=== PATIENT | female | born 1985 | race Caucasian/White ===

== ENCOUNTER 2025-09-25 08:34 | Emergency (ER) | payer BC, SELFPAY ==
[2025-09-25 08:47] VITALS: BP 111/68; PULSE 65; RESP 16; TEMP 36.6; O2SAT 100
--- NOTE | 2025-09-25 08:51 | ED.URI ---
HPI - URI/Sore Throat General Chief Complaint: Upper Respiratory Infection Stated Complaint: Body Aches/Dizziness Time Seen by Provider: 09/25/25 08:38 Source: patient Mode of arrival: ambulatory Limitations: no limitations History of Present Illness HPI Narrative: Katelyn is a 40-year-old female patient presenting to the clinic today with complaints of runny nose, cough, postnasal drip, dizziness, and body aches x1 week. She denies any known fevers or chills. Has been taking [id number]-[id number] allergy and cold medicines for her symptoms. Denies any chest pain or shortness of breath. Related Data Home Medications ?Medication ?Instructions ?Recorded ?Confirmed ?Last Taken ?Type alprazolam 0.25 mg tablet (Xanax) 0.25 mg PO QHS PRN 08/07/21 08/07/21 Unknown History sertraline 100 mg tablet (Zoloft) 100 mg PO DAILY 08/07/21 08/07/21 Unknown History bupropion HCl 450 mg 24 hr tablet, mg PO 09/25/25 Unknown History extended release lamotrigine 200 mg tablet mg 09/25/25 Unknown History topiramate 50 mg tablet mg 09/25/25 Unknown History Allergies Allergy/AdvReac Type Severity Reaction Status Date / Time No Known Allergies Allergy Verified 08/07/21 15:54 Review of Systems Review of Systems: Pertinent positives per HPI. Patient denies any fever, chills, rash, headache, visual changes, shortness of breath, chest pain, palpitations, nausea, vomiting, diarrhea, constipation, abdominal pain, or any urinary issues. [facility] Family History Family History Grandparent Carcinoma of colon Family history of lung cancer Family history of malignant neoplasm of breast Mother Family history of malignant neoplasm of breast in first degree relative Social History Social History (Updated 08/07/21 @ 15:56 by Yani Taylor MA) Smoking status: Light tobacco smoker Alcohol intake: current Substance use: never Comments At the time of my signature, I reviewed and agree with the nursing past medical, surgical, social, and family history. There is no relevant family history pertinent to the patient complaint. Exam Narrative: General: Well-developed, well nourished, in no apparent distress Head: Normocephalic, atraumatic Eyes: Pupils equally round and reactive to light bilaterally, EOM intact, sclera and conjunctive clear, no discharge, lids normal Ears: TMs intact and clear, ear canals clear, no drainage, grossly hearing normal. Nose: Nares patent, no discharge, mild inflammation, no sinus tenderness. Mouth: Oral pharynx red without lesions or masses, good dentition, MMM. Postnasal drip Neck: Supple, trachea midline, no enlargement of anterior or posterior cervical nodes, no thyroid masses or goiter palpable. Cardio: Regular rate and rhythm, s1 and s2 normal, no murmur appreciated. Resp: Clear to auscultation bilaterally, no rhonchi, rales, wheezing or rubs Course Course Level of Care: Express Care Visit Vital Signs Vital signs: Vital Signs Temperature 36.6 C 09/25/25 08:47 Pulse Rate 65 09/25/25 08:47 Respiratory Rate 16 09/25/25 08:47 Blood Pressure 111/68 09/25/25 08:47 Pulse Oximetry 100 09/25/25 08:47 Oxygen Delivery Room Air 09/25/25 08:47 Temperature 36.6 C 09/25/25 08:47 Pulse Rate 65 09/25/25 08:47 Respiratory Rate 16 09/25/25 08:47 Blood Pressure 111/68 09/25/25 08:47 Pulse Oximetry 100 09/25/25 08:47 Oxygen Delivery Room Air 09/25/25 08:47 [facility] MDM Narrative Medical decision making narrative: At the time of visit patient is resting comfortably on the exam table. Patient appears to be nontoxic. Complaints of runny nose, cough, postnasal drip, dizziness, and body aches x1 week. She denies any known fevers or chills. Has been taking wemc-tlt-snynnst allergy and cold medicines for her symptoms. Denies any chest pain or shortness of breath. On exam patient has bilateral TMs intact and clear, no nasal drainage, mild anterior turbinate inflammation, no sinus tenderness, oral pharynx mildly red with postnasal drip, no cervical lymphadenopathy, lung sounds are clear, heart rates regular rate and rhythm. Vital signs are stable. Plan: I suspect patient has URI/postnasal drip/viral syndrome. Patient has had symptoms for 1 week so no need for viral testing at this time. Supportive measures were discussed with the patient and they voiced understanding discharge instructions and agrees to treatment plan. Return precautions reviewed Differential Diagnosis Differential Diagnosis: Differential diagnostic considerations for upper respiratory infection include upper respiratory infection, croup, otitis media, sinusitis, viral infection, bronchitis, influenza, pharyngitis, strep, uvulitis. Discharge Plan Discharge Clinical Impression: Viral infection Upper respiratory infection Qualifiers: URI type: unspecified URI Qualified Code(s): J06.9 - Acute upper respiratory infection, unspecified Patient Disposition: Home Condition: Stable Instructions: Antibiotic Form, Upper Respiratory Infection (ED), Cold Symptoms (ED), Postnasal Drip (DC) Additional Instructions: No sign of bacterial infection in the clinic today. May take DayQuil/NyQuil for cold/flu symptoms Lung sounds are clear Increase fluids and stay well hydrated May take Tylenol or motrin as directed on bottle for pain/fever May use Flonase 1 spray in each nare daily May take OTC antihistamines such as Zyrtec or Claritin daily as directed on bottle May apply Vicks vapor rub to chest to open sinuses Sinus rinses for congestion Cepacol spray, cough drops, throat lozenges, warm tea with honey/lemon, gargle salt water to soothe throat BRAT diet for diarrhea Clear liquids x 24 hours then advance as tolerated for nausea/vomiting Go to the ED if you develop a worsening in your condition- high fever not controlled by Tylenol or Motrin, dehydration, weakness, lethargy, shortness of breath, or chest pain. Follow up with your PCP in 3-5 days if symptoms persist. Patient Language: Mohawk Prescriptions: No Action lamotrigine 200 mg tablet topiramate 50 mg tablet bupropion HCl 450 mg tablet extended release 24 hr PO sertraline [Zoloft] 100 mg tablet 100 mg PO DAILY alprazolam [Xanax] 0.25 mg tablet 0.25 mg PO QHS PRN Follow-up/Referrals: PHYSICIAN NOT ON STAFF,NONSTAFF [Primary Care Provider] Time of Disposition: 08:51 Quality NIHSS Nursing Documentation ED NIHSS nursing documentation: reviewed/agree
--- OUTSIDE RECORDS SUMMARY | 2025-09-25 08:59 | XMS_ITS | Clinical Summary ---
Author Organization [facility] Address [address] [address] Phone Care Team Providers Care Range Examiner Name Role Phone Unavailable Primary Care Provider Unavailabl e Social History Tobacco Use Types Packs/Day Years Used Date Smoking Tobacco: Never Assessed Comments Unknown Sex and Gender Information Value Date Recorded Sex Assigned at Not on file Legal Sex Female 2:27 PM CDT Gender Identity Not on file Sexual Orientation Not on file Plan of Treatment Health Maintenance Due Date Last Done Comments DTAP/TDAP/TD VACCINES (1 - Tdap) 2006 HEPATITIS B VACCINES (1 of 3 - 19+ 3-dose series) 05/2006 HPV/Cotest (21-29) 2008 CERVICAL CANCER SCREENING 2017 HPV/Cotest (30-65) 2017 PAP SMEAR 2017 INFLUENZA VACCINE (#1) 2025 HPV VACCINES (No Doses Required) Completed
--- OUTSIDE RECORDS SUMMARY | 2025-09-25 08:59 | XMS_ITS | Encounter Summary ---
Author Organization [facility] Address [address] [place] [address] Phone Care Team Providers Care Organ Pipe Voicer Name Role Phone Aaliyah Harris MD Primary Care Provider Vickey Cervantes Primary Care Provider [phone] Encounter Details Date Type Department Care Team (Latest Contact Info) Description 12/04/2014 Orders Only [facility] Scanning, Provider Social History Tobacco Use Types Packs/Day Years Used Date Smoking Tobacco: Every Day Comments Unknown Sex and Gender Information Value Date Recorded Sex Assigned at Not on file Legal Sex Female 5:45 AM STRUCTURES MECHANIC Gender Identity Not on file Sexual Orientation Not on file documented as of this encounter Plan of Treatment Not on file documented as of this encounter Procedures Procedure Name Priority Date/Time Associated Diagnosis Comments SCAN - LABS 12/04/2014 documented in this encounter Results * SCAN - LABS (12/04/2014) us Provider Scanning Final Result documented in this encounter Visit Diagnoses Not on filedocumented in this encounter Care Teams Organ Pipe Voicer Relationship Specialty Start Date End Date Aaliyah Harris MD [address] [facility] [address] [place] [address] PCP - General Family Medicine 12/01/18 03/13/25 Vickey Cervantes PA [address] [place] [address] PCP - General Orthopedic Surgery 03/14/25 documented as of this encounter
--- OUTSIDE RECORDS SUMMARY | 2025-09-25 08:59 | XMS_ITS | Encounter Summary ---
Author Organization [facility] Address [address] [place] [address] Phone Care Team Providers Care Fiberglass Bonding Machine Tender Name Role Phone Vickey Cervantes Primary Care Provider [phone] Jeffrey Mclain MD Unavailable [phone] Reason for Visit * Reason Comments Medication Refill Encounter Details Date Type Department Care Team (Late st Contact Info) Description 09/24/2025 Refill [facility] - Primary [facility] - [place] [address] [place] [address] Vickey Cervantes PAC [address] [place] [address] Medication Refill Social History Tobacco Use Types Packs/Day Years Used Date Smoking Tobacco: Former Cigarettes Smokeless Tobacco: Never Comments:occasionally Alcohol Use Standard Drinks/Week Comments Not Currently 0 (1 standard drink = 0.6 oz pur e alcohol) PHQ-2 Answer Date Recorded Total Score - Questions 1-9 0 11/05 Sexually Active Control Partners Comments Yes I.U.D. Comments No Sex and Gender Information Value Date Recorded Sex Assigned at Not on file Legal Sex Female 10:18 PM CDT Gender Identity Not on file Sexual Orientation Not on file documented as of this encounter Miscellaneous Notes * Telephone Encounter - Vickey Cervantes PAC - 09/24/2025 7:19 PM CST Refill approved. ETING STRATEGY MANAGER * Telephone Encounter - Lilibeth Weaver RN - 09/24/2025 3:02 PM CST Medication failed the protocol, provider to review and approve the medication order if appropriate. Requested Prescriptions Pending Prescriptions Disp Refills topiramate (TOPAMAX) 50 MG Tablet [Pharmacy Med Name: Topiramate 50 MG Oral Tablet] 180 Tablet 0 Sig: Take 1 tablet by mouth twice daily Not Delegated - Anticonvulsants Excluding Benzodiazepines Protocol Failed - 09/24/2025 3:02 PM Failed - This refill cannot be delegated Passed - Visit with relevant provider in past 12 months or upcoming 90 days Recent Visits Date Type Provider Dept 11/23/24 Office Visit Vickey Cervantes PAC [facility] 11/17/24 Office Visit Ladarius Bryan MD [facility] Showing recent visits within past 365 days and meeting all other requirements Future Appointments Date Type Provider Dept 11/29/25 Appointment Vickey Cervantes PAC [facility] Showing future appointments within next 90 days and meeting all other requirements ETING STRATEGY MANAGER documented in this encounter Plan of Treatment Upcoming Encounters Date Type Department Care Team (Late st Contact Info) Description 11/17/2025 9:10 AM MARKETING STRATEGY MANAGER Lab [facility] - [place] [address] [place] [phone] 11/29/2025 2:30 PM MARKETING STRATEGY MANAGER Office Visit [facility] - [place] [address] [place] [address] Vickey Cervantes PAC [address] [place] [address] documented as of this encounter Visit Diagnoses Diagnosis Moderate binge-eating disorder Class 2 obesity due to excess calories without serious comorbidity with body mass index (BMI) of 35.0 to 35.9 in adult documented in this encounter Additional Health Concerns Assessment Noted Time PHQ-9 Depression Total Score: 0 11/23/19 2:33 PM MARKETING STRATEGY MANAGER documented as of this encounter Care Teams Fiberglass Bonding Machine Tender Relationship Specialty Start Date End Date Vikcey Cervantes, PAC [address] [place] [phone] PCP - General Physician Spud Grader 05/22/23 Jeffrey Mclain MD [address] [place] [address] [address] [place] [address] Consulting Physician Psychiatry 11/17/24 documented as of this encounter
--- OUTSIDE RECORDS SUMMARY | 2025-09-25 08:59 | XMS_ITS | Clinical Summary ---
Author Organization [facility] Address [facility] [place] [address] Care Team Providers Care Leno Sewer Name Role Phone Vickey Cervantes Primary Care Provider [phone] Allergies No known active allergies Medications sertraline (ZOLOFT) 100 mg tablet 150 mg 1 9 Active copper (ParaGard T 380A) 380 square mm IUD ParaGard T 380A 380 square mm intrauterine device Take by intrauterine route. 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 Surgical History Surgery Date Site/Laterality Comments TONSILLECTOMY BREAST BIOPSY 10/05/2014 - 10/04/2015 Right punch bx done in dr office, axillary region (no scar), clogged milk duct BREAST BIOPSY 12/19/2020 Right benign needle bx Medical History Medical History Date Comments Personal history of other di seases of the female genital tract Vaginal delivery - (Added by TW Conv) Smoking BRCA2 positive Depression Anxiety Family History Medical History Relation Name Comments No Known Problems Brother Breast cancer Maternal Grandmother Breast cancer Maternal cousin second cousin Ovarian cancer Maternal cousin second cousin Breast cancer Mother Cancer Paternal Grandfather Breast cancer Paternal Grandmother Thyroid cancer Neg Hx Relation Name Status Comments Brother Alive Father Alive Maternal Grandmother Maternal cousin second cousin Mother Alive Paternal Grandfather Paternal Grandmother Social History Tobacco Use Types Packs/Day Years Used Date Smoking Tobacco: Every Day Cigarettes 0.1 8 Smokeless Tobacco: Never Comments:tyring to quit 07/02 Alcohol Use Standard Drinks/Week Comments Yes 0 (1 standard drink = 0.6 oz pur e alcohol) socially Comments No Sex and Gender Information Value Date Recorded Sex Assigned at Not on file Legal Sex Female 5:45 AM APPEALS WRITER Gender Identity Not on file Sexual Orientation Not on file Obstetrics History Para Term AB IAB SAB Ectopic Multiple Livin g Live Births 2 2 2 2 Date Outcome GA Total Labor Labor/2nd/3rd Weight Sex Type Anes PTL Clair A1 A5 Name Clin Term Term Last Filed Vital Signs Vital Sign Reading Time Taken Comments Blood Pressure 120/82 07/12/2019 11:06 AM CDT Pulse 96 07/12/2019 11:06 AM CDT Temperature 36.2 C (97.2 F) 07/02/2020 10:21 AM CDT Respiratory Rate - - Oxygen Saturation - - Inhaled Oxygen Concentration - - Weight 66.7 kg (147 lb) 04/17/2025 2:41 PM CDT Height 167.6 cm (5' 6) 04/17/2025 2:41 PM CDT Body Mass Index 23.73 04/17/2025 2:41 PM CDT Plan of Treatment Health Maintenance Due Date Last Done Comments Cervical Cancer Screening 1987 Depression Screening 1987 Hepatitis C Screening 1987 Varicella Vaccines (1 of 2 - 13+ 2-dose series) 2000 Hepatitis B Screening 2005 Regular Well Visit/Exam 18-64 2005 Pneumococcal vaccine <65 (1 of 2 - PCV) 2006 HPV Vaccines (1 - 3-dose SCD M series) 2014 DTaP/Tdap/Td Vaccine (2 - Td or Tdap) 08/03/2023 08/03/2013 Influenza Vaccine (#1) 2025 , 08/22/2018, 08/03/2013 Breast Cancer Screening-Mammogram 04/17/2026 04/17/2025, 02/02/2024, 12/11/2022, Additional history exists Procedures Procedure Name Priority Date/Time Associated Diagnosis Comments SCREENING MAMMOGRAM BILATERAL W TERA Schedule Routine, Read Routine (OP Routine) 04/17/2025 2:50 PM CDT Screening mammogram, encounter for from Last 3 Months or Most Recently Relevant to Health Maintenance Results * Screening Mammogram Bilateral W Tera (04/17/2025 2:50 PM CDT) Anatomical Region Laterality Modality Breast Bilateral Mammography Impressions 04/17/2025 3:56 PM CDT Bilateral No evidence of malignancy in either breast. OVERALL BI-RADS FINAL ASSESSMENT: 1 - Negative RECOMMENDATION: Recommend bilateral annual screening mammography. Narrative 04/17/2025 3:56 PM CDT EXAMINATION: Screening Mammogram Bilateral W Tera: 04/17/2025 COMPARISON: Relevant prior studies available at the time of interpretation were reviewed, including the most recent mammogram on: 02/02/2024. TECHNIQUE: Mammography was performed with 2D and digital breast tomosynthesis (DBT) images. CAD was utilized. BREAST PARENCHYMAL COMPOSITION: The breasts are extremely dense, which lowers the sensitivity of mammography. FINDINGS: Bilateral There is no suspicious mass, calcification, or architectural distortion in either breast.There is a biopsy marker clip in the right breast. us Self Screening Mammogram IMG MAMMO PROCEDURES Fi nal Result from Last 3 Months or Most Recently Relevant to Health Maintenance Insurance [facility] ANTHEM ACCESS [facility] OPEN ACCESS [facility] HMO/PPO Address: [address] [place] [address] COMMERCIAL GENERIC ANTH ACCESS Member Subscriber Plan / Payer ( fective 2023-Present) Name:GinaSapna Member ID:[id number] Relation to Subscriber:Self Name:MichealcarinaSapna Subscriber ID:[id number] Payer ID:[id number] ([facility]) Type: ALLIANCE Address: [id number] [place] [id number] Care Teams Leno Sewer Relationship Specialty Start Date End Date Vickey Cervantes PA [address] [place] [address] PCP - General Orthopedic Surgery 03/14/25
--- OUTSIDE RECORDS SUMMARY | 2025-09-25 08:59 | XMS_ITS | Encounter Summary ---
Author Organization [facility] Address [address] [place] [address] Phone Care Team Providers Care Forming Department Supervisor Name Role Phone Honey Bautista APRN, CNP Unavailable [phone] Vickey Cervantes Primary Care Provider [phone] Jeffrey Mclain MD Unavailable [phone] Reason for Visit * Reason Comments Medication Refill Encounter Details Date Type Department Care Team ([facility] Contact Info) Description 03/18[facility]20[facility] [place] [address] [place] [address] Vickey Cervantes PAC [address] [place] [address] Medication Refill Social History Tobacco Use Types Packs/Day Years Used Date Smoking Tobacco: Former Cigarettes Smokeless Tobacco: Never Comments:occasionally Alcohol Use Standard Drinks/Week Comments Not Currently 0 (1 standard drink = 0.6 oz pur e alcohol) PHQ-2 Answer Date Recorded Total Score - Questions 1-9 0 01/04 Comments No Sex and Gender Information Value Date Recorded Sex Assigned at Not on file Legal Sex Female 10:18 PM CDT Gender Identity Not on file Sexual Orientation Not on file documented as of this encounter Miscellaneous Notes * Telephone Encounter - Vickey Cervantes PAC - 03/18/2024 10:37 AM CDT Refill approved. * Telephone Encounter - Bryant Sharp RN - 03/18/2024 8:46 AM CDT Medication failed the protocol, provider to review and approve the medication order if appropriate. Requested Prescriptions Pending Prescriptions Disp Refills phentermine 30 MG Capsule [Pharmacy Med Name: PHENTERMINE HCL 30MG CAPSULES] 30 Capsule 0 Sig: TAKE 1 CAPSULE BY MOUTH DAILY Not Delegated - Anorexiants Non-amphetamine Protocol Failed - 03/18/2024 8:46 AM Failed - This refill cannot be delegated Passed - Visit with relevant provider in past 12 months or upcoming 90 days Recent Visits Date Type Provider Dept 02/19/24 Office Visit Vickey Cervantes PAC [facility] 05/22/23 Office Visit Vickey Cervantes PAC [facility] Showing recent visits within past 365 days and meeting all other requirements Future Appointments No visits were found meeting these conditions. Showing future appointments within next 90 days and meeting all other requirements documented in this encounter Plan of Treatment Upcoming Encounters Date Type Department Care Team (Late st Contact Info) Description 11/17/2025 9:10 AM DEPUTY EDITOR IN CHIEF Lab [facility] Primary [facility] - [address] [address] 11/29/2025 2:30 PM DEPUTY EDITOR IN CHIEF Office Visit [facility] - [address] [place] [address] Vickey Cervantes PAC [address] [place] [address] documented as of this encounter Visit Diagnoses Diagnosis Class 2 obesity due to excess calories without serious comorbidity with body mass index (BMI) of 35.0 to 35.9 in adult documented in this encounter Additional Health Concerns Infection Onset Date Last Indicated Resolved Time Respiratory Rule-Out 11/17/2024 11/17/2024 025 11:26 AM DEPUTY EDITOR IN CHIEF documented as of this encounter Care Teams Forming Department Supervisor Relationship Specialty Start Date End Date Vickey Cervantes, PAC [address] [place] [phone] PCP - General Physician Sat Instructor 05/22/23 Honey Bautista, DEPUTY DIRECTOR OF FINANCE, CONTRACT ASSISTANT [address] [place] [address] Nurse Practitioner Advanced Practice Nurse 01/29/22 11/15/24 Jeffrey Mclain MD [address] [place] [address] [place] [address] Consulting Physician Psychiatry 11/17/24 documented as of this encounter
--- OUTSIDE RECORDS SUMMARY | 2025-09-25 08:59 | XMS_ITS | Clinical Summary ---
Author Organization [facility] Address [address] [place] [address] Phone Care Team Providers Care Electrical Journeyman Name Role Phone Vickey Cervantes Primary Care Provider [phone] Jeffrey Mclain MD Unavailable [phone] Allergies No known active allergies Medications Paragard Intrauterine Copper IUD ParaGard T 380A 380 square mm intrauterine device Take by intrauterine route. Active ALPRAZolam (XANAX) 0.5 MG Tablet TAKE 1 TABLET BY MOUTH ONCE DAILY NEEDED FOR ANXIETY 08/13/20 22 Active lamoTRIgine (LaMICtal) 200 MG Tablet Take 200 mg by mouth daily. 08/23/20 22 Active buPROPion HCl ER, XL, (WELLBUTRIN XL) 450 MG TABLET SR 24 HR XL tablet Take 450 mg by mouth every morning. 11/02/19 25 Active phentermine 30 MG CapsuleIndicati ons:Class 2 obesity due to excess calories without serious comorbidity with body mass index (BMI) of 35.0 to 35.9 in adult TAKE 1 CAPSULE BY MOUTH DAILY 30 Capsule 08/15/20 25 Active topiramate (TOPAMAX) 50 MG TabletIndicatio ns:Moderate binge-eating disorder,Class 2 obesity due to excess calories without serious comorbidity with body mass index (BMI) of 35.0 to 35.9 in adult Take 1 tablet by mouth twice daily 180 Tablet 09/24/20 25 Active Topiramate 50 MG TabletIndicatio ns:Moderate binge-eating disorder,Class 2 obesity due to excess calories without serious comorbidity with body mass index (BMI) of 35.0 to 35.9 in adult Take 1 tablet by mouth twice daily 180 Tablet 05/15/20 25 2024 Discontinued Active Problems Problem Noted Date Diagnosed Date Binge eating disorder 02/19/2024 BRCA2 gene mutation positive 06/19/2021 Cyst of central nervous system 05/30/2015 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 - [address] [phone] Ludivina Santoro APRN, ASSOCIATE PROFESSOR OF BIOLOGY Medication Refill 06/27/[address] [facility] - [address] [phone] Vickey Cervantes, PAC Medication Refill from Last 3 Months Immunizations Immunization Administration Dates Next Due Influenza Vaccine greater than 3 yrs 07/08/2022 Influenza, Injectable, Quadrivalent 08/22/2018 Influenza, Seasonal, Injectable, Undefined 08/03 RHO(D) Immune Globulin- IV Or IM 09/16/2015,09/04,07/06/2015 TDAP Vaccine 08/03/2013 Family History Relation Name Status Comments Father Alive Mother Alive Social History Tobacco Use Types Packs/Day Years Used Date Smoking Tobacco: Former Cigarettes Smokeless Tobacco: Never Tobacco Cessation:Counseling Given: Not Answered Comments:occasionally Alcohol Use Standard Drinks/Week Comments Not [...] on file Sexual Orientation Not on file Last Filed Vital Signs Vital Sign Reading Time Taken Comments Blood Pressure 100/68 11/23/2024 2:34 PM PROCESSING LEAD Pulse 81 11/23/2024 2:34 PM PROCESSING LEAD Temperature 35.9 C (96.6 F) 11/23/2024 2:34 PM PROCESSING LEAD Respiratory Rate 16 11/23/2024 2:34 PM PROCESSING LEAD Oxygen Saturation 100% 11/23/2024 2:34 PM PROCESSING LEAD Inhaled Oxygen Concentration - - Weight 75.3 kg (166 lb) 11/23/2024 2:34 PM PROCESSING LEAD Height 170.2 cm (5' 7) 05/22/2023 3:31 PM CDT Body Mass Index 26 05/22/2023 3:31 PM CDT Plan of Treatment Upcoming Encounters Date Type Department Care Team (Late st Contact Info) Description 11/17/2025 9:10 AM PROCESSING LEAD Lab [facility] - Primary Care - [address] [place] [phone] 11/29/2025 2:30 PM PROCESSING LEAD Office Visit [facility] - [address] [place] [phone] Vickey Cervantes PAC [address] [place] [address] Health Maintenance Due Date Last Done Comments Hepatitis C Virus (HCV) Screening 1987 Varicella Immunization (1 of 2 - 13+ 2-dose series) 2000 Hepatitis B Immunization (1 of 3 - 19+ 3-dose series) 2006 HPV/Cotest 2017 Td Immunization Every 10 Yea rs (Adults With 1 Tdap) 08/03/2023 08/03/2013 Cervical Cancer Screening (CCS) 06/19/2024 Pap Smear 06/19/2024 06/19/2021 Influenza Immunization (#1) 2025 1001/2022, 08/22/2018, 08/03/2013 SARS-COV-2 Immunization ( season) 2025 09/06/2021 Respiratory Syncytial Virus (RSV) Immunization (Adult) (1 - 1-dose 75+ series) 2062 DTaP/Tdap/Td Immunization Discontinued 08/03/2013 Human Papillomavirus (HPV) Immunization (No Doses Required) Completed Meningococcal Immunization (ACWY) Aged Out No longer eligible based on patient's age to complete this topic Pneumococcal Immunization Combined Aged Out No longer eligible based on patient's age to complete this topic Rotavirus Immunization Aged Out No lo nger eligible based on patient's age to complete this topic [place] [address] [address] [address] Care Teams Electrical Journeyman Relationship Specialty Start Date End Date Vickey Cervantes PAC [address] [place] [phone] PCP - General Physician Beam Press Operator 05/22/23 Jeffrey Mclain MD [address] [place] [address] [address] [place] [address] Consulting Physician Psychiatry 11/17/24
--- OUTSIDE RECORDS SUMMARY | 2025-09-25 08:59 | XMS_ITS | Data Portability ---
Author Organization [facility] Address [address] [place] [address] Care Team Providers Care Low Pressure Firer Name Role Phone HARPALJEY ASH Primary Care Provider Assessment Encounter Date Assessment Date Assessment LastModified by Organization Details LastModified Time 06/19/2021 06/19/2021 Annual gynecological exam performed. Patient will come back in a year unless there are new symptoms. [email or web address] Not available 06/19/2021 17:43:10 07/14/2024 07/14/2024 Annual gynecological exam performed. Patient will come back in a year unless there are new symptoms. Not available 07/14/2024 09:59:35 08/21/2025 08/21/2025 Annual gynecological exam performed. Patient will come back in a year unless there are new symptoms. Not available 08/21/2025 10:06:08 Plan of Treatment Reminders Order Date Submit Date Provider Last Modified By Organization Details Last Modified Time Details Appointments None recorded. Lab hormone panel, serum or plasma 2024 025 [facility] (Lab), [address], [place], [address], 15:47:14 testosteron e free/testos terone total, ratio, serum 2024 025 [facility] (Lab), [address], [place], [address], 5 15:47:16 free T3, quantitativ e, dialysis serum or plasma 2024 025 [facility] (Lab), [address], [place], [address], 5 15:47:15 T4, free, serum 2024 025 [facility] (Lab), [address], [place], [address], 5 15:47:13 prolactin, serum 2024 025 [facility] (Lab), [address] [place], [address], 5 15:47:15 progesteron e, serum 2024 025 [facility] (Lab), [address], [place], [address], 5 15:47:14 CBC w/ auto diff 2024 025 [facility] (Lab), [address] [place], [address], 5 15:47:11 CMP, serum or plasma 2024 025 [facility] (Lab), [address] [place], [address], 5 15:47:12 lipid panel, blood 2024 025 [facility] (Lab), [address] [place], [address], 5 15:47:12 TSH, serum or plasma 2024 025 [facility] (Lab), [address] [place], [address], 5 15:47:13 25-hydroxyv itamin D2 + 25-hydroxyv itamin D3, QN, serum or plasma 2024 025 [facility] (Lab), [address], [place], [address], 5 15:47:13 Referral None recorded. Procedures None recorded. Surgeries None recorded. Imaging US, pelvis 2019 020 [email or web address] [place], [address], [address], [place], [address], 0 19:14:39 US, transvagina l 2019 020 [facility], [address], [address], [place], [address], 0 05:01:05 Medication Orders Metrogel Vaginal 0.75 % (37.5 mg/5 gram) [address] [facility], [address] [place], [address], 4 10:03:25 Patient TargetsNo targets recorded. Patient InstructionsNo instructions recorded. Reason for Referral None Reported. Results Created Date Observation Date Name Description Value Unit Range Abnormal Flag Note LastModifiedBy Organization Detail LastModifiedTime 02/08/2002/09/2020 bacte rial vagin osis panel , vagin al top line result Normal normal Not Available [facility] ([facility]) [address] [facility] [address], [place], [address], 02/10/2020 05:58:17 02/08/20 20 02/09/2020 bacte rial vagin osis panel , vagin al interpretati on SEE COMMEN T The organ isms detec jacinto in this speci men are indic ative of rika l micro don .Thes e resul ts, meant to aid in the diagn osis and manag ement of BV, do not compl etely rule out BV and shoul d be inter prete d in the tonie xt of other test resul ts and clini jenifer findi ngs. Not Available [facility] ([facility]) [address] [place] [address] [address], [place], [address], 02/10/2020 05:58:17 02/08/20 20 02/09/2020 bacte rial vagin osis panel , vagin al atopobium vaginae Not Detect ed normal Not Available [facility] ([facility]) [address] [place] [address] [address], [place], [address], 02/10/2020 05:58:17 02/08/20 20 02/09/2020 bacte rial vagin osis panel , vagin al gardnerella vaginalis Not Detect ed normal Not Available [facility] ([facility]) [address] [place] [address] [address], [place], [address], 02/10/2020 05:58:17 02/08/20 20 02/09/2020 bacte rial vagin osis panel , vagin al bvab2 Not Detect ed normal Not Available [facility] ([facility]) [address] [place] [address] [address], [place], [address], 02/10/2020 05:58:17 02/08/20 20 02/09/2020 bacte rial vagin osis panel , vagin al megasphaera 1 Not Detect ed normal Not Available [facility] ([facility]) [address] [place] [address] [address], [place], [address], 02/10/2020 05:58:17 02/08/20 20 02/09/2020 bacte rial vagin osis panel , vagin al megaspherea 2 Not Detect ed normal Not Available [facility]) [address] [place] [address] [address], [place], [address], 02/10/2020 05:58:17 02/08/20 20 02/09/2020 bacte rial vagin osis panel , vagin al lactobacillu s crispatus Not Detect ed normal Not Available [facility] ([facility]) [address] [place] [address] [address], [place], [address], 02/10/2020 05:58:17 02/08/20 20 02/09/2020 bacte rial vagin osis panel , vagin al lactobacillu s gasseri Not Detect ed normal Not Available [facility] ([facility]) [address] [place] [address] [address], [place], [address], 02/10/2020 05:58:17 02/08/20 20 02/09/2020 bacte rial vagin osis panel , vagin al lactobacillu s iners ql Not Detect ed normal Not Available [facility] ([facility]) [address] [place] [address] [address], [place], [address], 02/10/2020 05:58:17 02/08/20 20 02/09/2020 bacte rial vagin osis panel , vagin al lactobacillu s jensenii ql Normal normal Not Available [facility] ([facility]) [address] [place] [address] [address], [place], [address], 02/10/2020 05:58:17 02/08/20 20 02/09/2020 bacte rial vagin osis panel , vagin al mobiluncus mulieris Not Detect ed normal Not Available [facility] ([facility]) [address] [place] [address] [address], [place], [address], 02/10/2020 05:58:17 02/08/20 20 02/09/2020 bacte rial vagin osis panel , vagin al mobiluncus curtisii Not Detect ed normal Not Available [facility] ([facility]) [address] [place] [address] [address], [place], [address], 02/10/2020 05:58:17 02/08/20 20 02/09/2020 bacte rial vagin osis panel , vagin al mycoplasma hominis Not Detect ed normal Not Available [facility] ([facility]) [address] [place] [address] [address], [place], [address], 02/10/2020 05:58:17 02/08/20 20 02/09/2020 bacte rial vagin osis panel , vagin al ureaplasma urealyticum Not Detect ed normal Not Available [facility] ([facility]) [address] [place] [address] [address], [place], [address], 02/10/2020 05:58:17 02/08/20 20 02/09/2020 shbg (sex hormo ne-bi nding globu beena), serum sex hormone binding globulin (shbg) 82.0 nmol/ L 24.6-1 22.0 STAGE MALE FEMAL E Tanne r Stage I: 26-18 6 nmol/ L 30-17 3 nmol/ L Tanne r Stage II: 22-16 9 nmol/ L 16-12 7 nmol/ L Tanne r Stage III: 13-10 4 nmol/ L 12-98 nmol/ L Tanne r Stage IV: 11-60 nmol/ L 14-15 1 nmol/ L Tanne r Stage V: 11-71 nmol/ L 23-16 5 nmol/ L Not Available [facility] ([facility]) [address] [place] [address] [address], [place], [address], 02/11/2020 19:25:33 02/08/20 20 02/09/2020 prola ctin, serum prolactin 13.00 NG/mL 4.79-2 3.30 Not Available [facility] ([facility]) [address] [place] [address] [address], [place], [address], 02/11/2020 19:25:33 02/08/20 20 02/09/2020 proge stero ne, serum progesterone 15.60 NG/mL Proge stero ne Refer ence Range Healt hy women Folli cular phase 0.057 - 0.893 Ovula tion phase 0.121 - 12.0 Lutea l phase 1.83 - 23.9 Postm enopa use <0.05 - 0.126 Healt hy pregn ant women 1st trime ster 11.0 - 44.3 2nd trime ster 25.4 - 83.3 3rd trime ster 58.7 - 214 Not Available [facility] ([facility]) [facility] [address], [place], [address], 02/11/2020 19:25:34 02/08/20 20 02/09/2020 lh (lute inizi ng hormo ne), serum luteinizing hormone 6.80 mIU/m L LH Refer ence Range Men: 1.7 - 8.6 Women : Folli cular phase 2.4 - 12.6 Ovula tion phase 14.0 - 95.6 Lutea l phase 1.0 - 11.4 Postm enopa use 7.7 - 58.5 Not Available [facility] ([facility]) [address] [place] [address] [address], [place], [address], 02/11/2020 19:25:34 02/08/20 20 02/09/2020 FSH (foll icle- stimu latin g hormo ne), serum FSH 2.65 mIU/m L FSH Refer ence Range Men: 1.5 - 12.4 Women : Folli cular phase 3.5 - 12.5 Ovula tion phase 4.7 - 21.5 Lutea l phase 1.7 - 7.7 Postm enopa use 25.8 - 134.8 Not Available [facility] ([facility] [employer] [employer]) [address] [place] [address] [address], [place], [address], 02/11/2020 19:25:34 02/08/20 20 02/09/2020 estra diol, serum estradiol 177 pg/mL Estra diol Refer ence Range Healt hy women Folli cular phase 12.4 - 233 Ovula tion phase 41.0 - 398 Lutea l phase 22.3 - 341 Postm enopa use <5 - 138 Healt hy pregn ant women 1st trime ster 154 - 3243 2nd trime ster 1561 - 48931 3rd trime ster 8525 - >3000 0 Not Available [facility] ([facility]) [facility] [address], [place], [address], 02/11/2020 19:25:35 02/08/20 20 02/09/2020 HbA1c (hemo globi n A1c), blood hemoglobin A1C 5.3 % <5.7 The follo wing HbA1c range s recom caitlin d by the Felipe can Diabe ericka Assoc iatio n (ADA) may be used as an aid in the diagn osis of diabe ericka melli tus. HA1c Sugge sted Diagn osis >=6.5 % Diabe tic 5.7% - 6.4% Pre-D iabet ic <5.7% Non-D iabet ic Not Available [facility] ([employer] [facility] [employer]) [facility] [address], [place], [address], 02/11/2020 19:25:35 02/08/20 20 02/09/2020 estim ated avera ge gluco se estimated average glucose 105 mg/dL Henefer ge Gluco se is calcu lated using the equat ion AG = (28.7 x HgbA1 c) - 46.7 based on the guide lines estab lishe d by the ADA. Not Available [facility] ([facility] [employer]) [facility] [address], [place], [address], 02/11/2020 19:25:36 02/08/20 20 02/09/2020 TSH, serum or plasm a TSH reflex to FT4 1.74 mU/L 0.27-4 .20 Not Available [facility] ([facility] [employer]) [facility] [address], [place], [address], 02/11/2020 19:25:36 02/08/20 20 02/11/2020 testo stero ne, total , serum testosterone , total (female and children) 25.6 NG/dL 10.0-5 2.0 Preme nopau tanvir 10-52 ng/dL (Grea ter than 18 years ) Postm enopa usal 6-30 ng/dL This test was devel oped and its perfo rmanc e maikol cteri stics were deter mined by [facility] at[facility] es. It has not been clear ed or appro eduardo by the FDA. The labor atory is regul ated under CLIA as quali fied to perfo rm high- compl exity testi ng. This test is used for clini jenifer purpo ses and shoul d not be regar ded as inves tigat ional or for resea rc. Not Available [facility] ([facility]) [address] [facility] [address], [place], [address], 02/11/2020 19:25:36 02/08/20 20 02/08/2020 pregn danii test, urine HCG negati ve Not Available [facility] [address], [place], [address], 02/08/2020 10:30:50 11/14/19 21 11/14/2020 , radha whitley md interpretati on Not Available [facility] [address], [place], [address], 02/21/2020 15:54:17 06/19/20 21 06/19/2021 VAGIN ITIS/ VAGIN OSIS, DNA PROBE randall sp. detection, direct probe Negati ve negati ve Not Available [facility] (Lab) [address], [place], [address], 06/23/2021 14:45:55 06/19/20 21 06/19/2021 VAGIN ITIS/ VAGIN OSIS, DNA PROBE gardnerella vag. detection, direct probe Negati ve negati ve Not Available [facility] (Lab) [address], [place], [address], 06/23/2021 14:45:55 06/19/20 21 06/19/2021 VAGIN ITIS/ VAGIN OSIS, DNA PROBE trichomonas vag. detection, direct probe Negati ve negati ve Not Available [facility] (Lab) [address], [place], [address], 06/23/2021 14:45:55 06/19/20 21 06/19/2021 IMAGE GUIDE D PAP AND HPV REGAR DLESS image guided Pap, HPV regardless of Pap result SEE RESULT S BELOW CASE REPOR T: Cytol ogy Gynec ologi jenifer Repor t Case: [id number] Autho jaunparas tacos Provi laura: Russ Patel MD Colle cted: 06/19 1746 Order ing Locat ion: [place] Path[facility] Recei eduardo: 06/20 0002 First Scree n: Radha Cervantes , CT Speci men: Scree shani Pap - Image d, Cervi x STATE MENT OF ADEQU ACY: Satis facto ry for evalu ation Trans forma tion zone compo nent prese nt FINAL DIAGN OSIS: Negat elliott for Intra epith elial Shelley barlow or Flakita wiggins (NIL) Elect camryn fabian alejandro d by Radha Cervantes , CT on 2020 at 1:43 PM ----- ----- ----- ----- ----- ----- ----- ----- ----- ----- ----- ----- ----- ----- ----- ----- ----- ---- HPV RESUL TS: HPV mRNA E6/E7 : No HPV mRNA Detec jacinto NOTE: This high risk HPV mRNA assay detec ts fourt een high- risk HPV types (16, 18, 31, 33, 35, 39, 45, 51, 52, 56, 58, 59, 66, 68) witho ut diffe renti ation . COMME NT: Note: This speci men was revie wed by a Cytot echno logis t and/o r Patho logis t (as indic ated in this repor t) after evalu ation using the Thinp rep Imagi ng Syste m. CLINI JENIFER INFOR MATIO N: Menst rual Statu s: LMP (if appli cable ): 020 Clini jenifer Histo ry/Pr eviou s Pap: Type of Neopl rayne (if appli cable ): Signi fican t Clini jenifer Findi ngs: Other Histo ry: Hormo hira (if appli cable ): PAP EDUCA ANITA L NOTE: The Pap Test is a scree shani test with an inher ent false negat elliott rate. Liqui d-bas e sampl ing may decre ase, but will not elimi billy, false negat elliott resul ts. A negat elliott resul t does not precl ude the prese nce and/o r devel opmen t of disea se, since the prese nce of abnor mal cells in the sampl e depen ds on the locat ion of the lesio n and sampl ing techn ique. Delonte nued regul ar scree shani is the best metho d of cance r preve ntion . If repor jacinto cytol ogic findi ng do not corre late with physi jenifer and/o r histo rical findi ngs, furth er inves tigat ion is recom caitlin d, as clini tomi anaya nted. Not Available [facility] (Lab) [address], [place], [address], 06/23/2021 14:45:55 07/14/20 24 07/14/2024 IMAGE GUIDE D PAP AND HPV REGAR DLESS image guided Pap, HPV regardless of Pap result SEE RESULT S BELOW CASE REPOR T: Cytol ogy Gynec ologi jenifer Repor t Case: [id number] Autho rimemen g Provi laura: Russ Patel MD Colle cted: 07/14 1316 Order ing Locat ion: [place] Patho log[facility] Recei eduardo: 07/15 0725 First Henriquee n: Radha Cervantes , CT Speci men: Syed mcleod Pap - Image d, Cervi x STATE MENT OF ADEQU ACY: Satis facto ry for evalu ation Trans forma tion zone compo nent prese nt ----- ----- ----- ----- ----- ----- ----- ----- ----- ----- ----- ----- ----- ----- ----- ----- ----- ---- FINAL DIAGN OSIS: Negat elliott for Intra epith elial Shelley barlow or Flakita wiggins ([facility]) . Elect camryn guardado by Radha Cervantes , CT on 07/20 at 6:59 PM ----- ----- ----- ----- ----- ----- ----- ----- ----- ----- ----- ----- ----- ----- ----- ----- ----- ---- HPV RESUL TS: HPV mRNA E6/E7 : No HPV mRNA Detec jacinto NOTE: This high risk HPV mRNA assay detec ts fourt een high- risk HPV types (16, 18, 31, 33, 35, 39, 45, 51, 52, 56, 58, 59, 66, 68) witho ut diffe renti ation . COMME NT: This speci men was revie wed by a Cytot echno logis t and/o r Patho logis t (as indic ated in this repor t) after evalu ation using the Thinp rep Imagi ng Syste m. CLINI JENIFER INFOR MATIO N: Menst rual Statu s: LMP (if appli cable ): Clini jenifer Histo ry/Pr eviou s Pap: Type of Neopl rayne (if appli cable ): Signi fican t Clini jenifer Findi ngs: Other Histo ry: Hormo hira (if appli cable ): PAP EDUCA ANITA L NOTE: The Pap Test is a scree shani test with an inher ent false negat elliott rate. Liqui d-bas ed sampl ing may decre ase, but will not elimi billy, false negat elliott resul ts. A negat elliott resul t does not precl ude the prese nce and/o r devel opmen t of disea se, since the prese nce of abnor mal cells in the sampl e depen ds on the locat ion of the lesio n and sampl ing techn ique. Delonte nued regul ar scree shani is the best metho d of cance r preve ntion . If repor jacinto cytol ogic findi ng do not corre late with physi jenifer and/o r histo rical findi ngs, furth er inves tigat ion is recom caitlin d, as clini tomi anaya nted. Not Available [facility] (Lab) [address], [place], [address], 07/20/2024 20:01:53 08/21/20 25 08/21/2025 IMAGE GUIDE D PAP AND HPV REGAR DLESS image guided Pap, HPV regardless of Pap result SEE RESULT S BELOW CASE REPOR T: Cytol ogy Gynec ologi jenifer Repor t Case: [id number] Autho robbin g Provi laura: Russ Patel MD Colle cted: 08/21 1306 Order ing Locat ion: [place] Patho log[facility] Recei eduardo: 08/22 0738 First Scree n: Phuong Polanco Speci men: Scree shani Pap - Image d, Cervi x STATE MENT OF ADEQU ACY: Satis facto ry for evalu ation Trans forma tion zone compo nent prese nt ----- ----- ----- ----- ----- ----- ----- ----- ----- ----- ----- ----- ----- ----- ----- ----- ----- ---- FINAL DIAGN OSIS: Negat elliott for Intra epith elial Lesio n or Flakita wiggins (NIL) . Elect camryn gue d by Phuong Polanco on 08/24 at 1715 ODD SHOE EXAMINER ----- ----- ----- ----- ----- ----- ----- ----- ----- ----- ----- ----- ----- ----- ----- ----- ----- ---- HPV RESUL TS: HPV mRNA E6/E7 : No HPV mRNA Detec jacinto NOTE: This high risk HPV mRNA assay detec ts fourt een high- risk HPV types (16, 18, 31, 33, 35, 39, 45, 51, 52, 56, 58, 59, 66, 68) witho ut diffe renti ation . COMME NT: This speci men was revie wed by a Cytot echno logis t and/o r Patho logis t (as indic ated in this repor t) after evalu ation using the Thinp rep Imagi ng Syste m. CLINI JENIFER INFOR MATIO N: Menst rual Statu s: LMP (if appli cable ): Clini jenifer Histo ry/Pr eviou s Pap: Type of Neopl rayne (if appli cable ): Signi fican t Clini jenifer Findi ngs: Other Histo ry: Hormo hira (if appli cable ): PAP EDUCA ANITA L NOTE: The Pap Test is a scree shani test with an inher ent false negat elliott rate. Liqui d-bas ed sampl ing may decre ase, but will not elimi billy, false negat elliott resul ts. A negat elliott resul t does not precl ude the prese nce and/o r devel opmen t of disea se, since the prese nce of abnor mal cells in the sampl e depen ds on the locat ion of the lesio n and sampl ing techn ique. Delonte nued regul ar scree shani is the best metho d of cance r preve ntion . If repor jacinto cytol ogic findi ng do not corre late with physi jenifer and/o r histo rical findi ngs, lynndiego lim uszanne jovana ion is recom caitlin d, as clini tomi anaya nted. Not Available [facility] (Lab) [address], [place], [address], 08/24/2025 18:20:37 08/21/20 25 08/21/2025 CBC W/DIF F WBC 5.2 10'3/ uL 3.5-10 .5 Not Available [facility] ([facility]) [address], [place], [address], 08/26/2025 15:47:11 08/21/20 25 08/21/2025 CBC W/DIF F RBC 4.50 10'6/ uL (based on docume nted legal sex) 3.80-5 .20 Not Available [facility] ([facility]) [address], [place], [address], 08/26/2025 15:47:11 08/21/20 25 08/21/2025 CBC W/DIF F HGB 13.7 g/dL (based on docume nted legal sex) 11.6-1 5.4 Not Available [facility] ([facility]) [address], [place], [address], 08/26/2025 15:47:11 08/21/20 25 08/21/2025 CBC W/DIF F HCT 42.0 % (based on docume nted legal sex) 34.0-4 5.0 Not Available [facility] ([facility]) [address], [place], [address], 08/26/2025 15:47:11 08/21/20 25 08/21/2025 CBC W/DIF F MCV 93.3 fL 80.0-9 9.0 Not Available [facility] ([facility]) [address], [place], [address], 08/26/2025 15:47:11 08/21/20 25 08/21/2025 CBC W/DIF F MCH 30.4 pg 27.0-3 4.0 Not Available [facility] ([facility]) [address], [place], [address], 08/26/2025 15:47:11 08/21/20 25 08/21/2025 CBC W/DIF F MCHC 32.6 g/dL 32.0-3 5.5 Not Available [facility] ([facility]) [address], [place], [address], 08/26/2025 15:47:11 08/21/20 25 08/21/2025 CBC W/DIF F RDW 12.9 % 11.0-1 5.0 Not Available [facility] ([facility]) [address], [place], [address], 08/26/2025 15:47:11 08/21/20 25 08/21/2025 CBC W/DIF F plt 321 10'3/ uL 150-40 0 Not Available [facility] ([facility]) [address], [place], [address], 08/26/2025 15:47:11 08/21/20 25 08/21/2025 CBC W/DIF F MPV 10.0 fL 8.8-12 .1 Not Available [facility] ([facility]) [address], [place], [address], 08/26/2025 15:47:11 08/21/20 25 08/21/2025 CBC W/DIF F NRBC's 0.0 % 0.0 Not Available [facility] ([facility]) [address], [place], [address], 08/26/2025 15:47:11 08/21/20 25 08/21/2025 CBC W/DIF F absolute NRBCs 0.0 10'3/ uL no refere nce range establ ished Not Available [facility] ([facility]) [address], [place], [address], 08/26/2025 15:47:11 08/21/20 25 08/21/2025 CBC W/DIF F neutrophils 51.3 % 34.0-7 3.0 Not Available [facility] ([facility]) [address], [place], [address], 08/26/2025 15:47:11 08/21/20 25 08/21/2025 CBC W/DIF F lymphocytes 38.0 % 15.0-5 0.0 Not Available [facility] ([facility]) [address], [place], [address], 08/26/2025 15:47:11 08/21/20 25 08/21/2025 CBC W/DIF F monocytes 7.8 % 1.0-15 .0 Not Available [facility] ([facility]) [address], [place], [address], 08/26/2025 15:47:11 08/21/20 25 08/21/2025 CBC W/DIF F eosinophils 1.5 % 0.0-8. 0 Not Available [facility] ([facility]) [address], [place], [address], 08/26/2025 15:47:11 08/21/20 25 08/21/2025 CBC W/DIF F basophils 1.0 % 0.0-2. 0 Not Available [facility] (Lab) [address], [place], [address], 08/26/2025 15:47:11 08/21/20 25 08/21/2025 CBC W/DIF F immature granulocytes 0.4 % no define d refere nce range Immat ure Granu locyt es (IG) repre sents autom ated enume ratio n of Metam yeloc ytes, Myelo cytes and Promy elocy ericka when IG is < 5%. Blast s are not inclu ded in IG and repor jacinto separ ately if prese nt. Not Available [facility] (Lab) [address], [place], [address], 08/26/2025 15:47:11 08/21/20 25 08/21/2025 CBC W/DIF F absolute neutrophils 2.7 10'3/ uL 1.5-8. 0 Not Available [facility] (Lab) [address], [place], [address], 08/26/2025 15:47:11 08/21/20 25 08/21/2025 CBC W/DIF F absolute lymphocytes 2.0 10'3/ uL 1.0-4. 0 Not Available [facility] (Lab) [address], [place], [address], 08/26/2025 15:47:11 08/21/20 25 08/21/2025 CBC W/DIF F absolute monocytes 0.4 10'3/ uL 0.2-1. 0 Not Available [facility] (Lab) [address], [place], [address], 08/26/2025 15:47:11 08/21/20 25 08/21/2025 CBC W/DIF F absolute eosinophils 0.1 10'3/ uL 0.0-0. 6 Not Available [facility] (Lab) [address], [place], [address], 08/26/2025 15:47:11 08/21/20 25 08/21/2025 CBC W/DIF F absolute basophils 0.1 10'3/ uL 0.0-0. 3 Not Available [facility] (Lab) [address], [place], [address], 08/26/2025 15:47:11 08/21/20 25 08/21/2025 CBC W/DIF F absolute immature granulocytes 0.0 10'3/ uL 0.00-0 .10 Refer ence range s for nonbi nary/ inter sex or unspe cifie d gende r patie nts have not been estab lishe d. Pleas e refer to the follo wing table for range s estab lishe d for cisge nder patie nts and evalu ate in the clini jenifer tonie xt of the indiv idual patie nt: https ://shayan rick book. nm.or g/gen derx Not Available [facility] (Lab) [address], [place], [address], 08/26/2025 15:47:11 08/21/20 25 08/21/2025 CMP(C OMPRE HENSI VE METAB OLIC PANEL ) sodium 141 mmol/ L 133-14 6 Not Available [facility] (Lab) [address], [place], [address], 08/26/2025 15:47:12 08/21/20 25 08/21/2025 CMP(C OMPRE HENSI VE METAB OLIC PANEL ) potassium 4.2 mmol/ L 3.5-5. 1 Not Available [facility] (Lab) [address], [place], [address], 08/26/2025 15:47:12 08/21/20 25 08/21/2025 CMP(C OMPRE HENSI VE METAB OLIC PANEL ) chloride 106 mmol/ L 98-107 Not Available [facility] (Lab) [address], [place], [address], 08/26/2025 15:47:12 08/21/20 25 08/21/2025 CMP(C OMPRE HENSI VE METAB OLIC PANEL ) carbon dioxide 28 mmol/ L 21-31 Not Available [facility] (Lab) [address], [place], [address], 08/26/2025 15:47:12 08/21/20 25 08/21/2025 CMP(C OMPRE HENSI VE METAB OLIC PANEL ) anion gap 7 mmol/ L 4-13 Not Available [facility] (Lab) [address] [place], [address], 08/26/2025 15:47:12 08/21/20 25 08/21/2025 CMP(C OMPRE HENSI VE METAB OLIC PANEL ) blood urea nitrogen 15 mg/dL 7-25 Not Available [facility] (Lab) [address], [place], [address], 08/26/2025 15:47:12 08/21/20 25 08/21/2025 CMP(C OMPRE HENSI VE METAB OLIC PANEL ) creatinine 0.97 mg/dL 0.60-1 .30 Not Available [facility] (Lab) [address], [place], [address], 08/26/2025 15:47:12 08/21/20 25 08/21/2025 CMP(C OMPRE HENSI VE METAB OLIC PANEL ) egfrcr (CKD-epi 2020) 77 mL/mi n/1.7 3_m2 >=60 Not Available [facility] (Lab) [address], [place], [address], 08/26/2025 15:47:12 08/21/20 25 08/21/2025 CMP(C OMPRE HENSI VE METAB OLIC PANEL ) calcium 8.6 mg/dL 8.3-10 .5 Not Available [facility] (Lab) [address], [place], [address], 08/26/2025 15:47:12 08/21/20 25 08/21/2025 CMP(C OMPRE HENSI VE METAB OLIC PANEL ) glucose 77 mg/dL 70-100 Not Available [facility] (Lab) [address], [place], [address], 08/26/2025 15:47:12 08/21/20 25 08/21/2025 CMP(C OMPRE HENSI VE METAB OLIC PANEL ) protein, total 6.4 g/dL 6.4-8. 3 Not Available [facility] (Lab) [address], [place], [address], 08/26/2025 15:47:12 08/21/20 25 08/21/2025 CMP(C OMPRE HENSI VE METAB OLIC PANEL ) albumin 4.1 g/dL 3.5-5. 0 Not Available [facility] (Lab) [address], [place], [address], 08/26/2025 15:47:12 08/21/20 25 08/21/2025 CMP(C OMPRE HENSI VE METAB OLIC PANEL ) ALT 20 units /L 9-43 Not Available [facility] (Lab) [address], [place], [address], 08/26/2025 15:47:12 08/21/20 25 08/21/2025 CMP(C OMPRE HENSI VE METAB OLIC PANEL ) alkaline phosphatase 63 units /L 34-104 Not Available [facility] (Lab) [address], [place], [address], 08/26/2025 15:47:12 08/21/20 25 08/21/2025 CMP(C OMPRE HENSI VE METAB OLIC PANEL ) AST 18 units /L 13-39 Not Available [facility] (Lab) [address], [place], [address], 08/26/2025 15:47:12 08/21/20 25 08/21/2025 CMP(C OMPRE HENSI VE METAB OLIC PANEL ) bilirubin, total 0.3 mg/dL 0.2-1. 2 Not Available [facility] (Lab) [address] [place], [address], 08/26/2025 15:47:12 08/21/20 25 08/21/2025 LIPID PANEL ,AMA (LDL- CALC) total cholesterol 178 mg/dL 0-199 Not Available [facility] (Lab) [address], [place], [address], 08/26/2025 15:47:12 08/21/20 25 08/21/2025 LIPID PANEL ,AMA (LDL- CALC) triglyceride s 57 mg/dL 0-150 NCEP Refer ence Value s for Trigl yceri jan: Rika l: <150 mg/dL Borde rline High: 150 - 199 mg/dL High: 200 - 499 mg/dL Very High: >/= 500 mg/dL Not Available [facility] (Lab) [address] [place], [address], 08/26/2025 15:47:12 08/21/20 25 08/21/2025 LIPID PANEL ,AMA (LDL- CALC) HDL cholesterol 66 mg/dL >40 Not Available [facility] (Lab) [address] [place], [address], 08/26/2025 15:47:12 08/21/20 25 08/21/2025 LIPID PANEL ,AMA (LDL- CALC) LDL cholesterol 98 mg/dL 0-99 Cutof f value s recom caitlin d by the Natio nal Bella stero l Educa tion Progr am: GISELLE ABLE: Bella stero l <200 mg/dL LDL <100 mg/dL BORDE RLINE : Bella stero l 200-2 39 mg/dL LDL 101-1 59 mg/dL HIGHE R RISK: Bella stero l >240 mg/dL LDL >160 mg/dL , HDL <40 mg/dL Not Available [facility] (Lab) [address] [place], [address], 08/26/2025 15:47:12 08/21/20 25 08/21/2025 LIPID PANEL ,AMA (LDL- CALC) non-HDL cholesterol 112 mg/dL no refere nce range A reaso nable goal for non-H DL bella stero l is one that is 30 mg/dL highe r than the LDL bella stero l goal. Not Available [facility] (Lab) [address] [place], [address], 08/26/2025 15:47:12 08/21/20 25 08/21/2025 LIPID PANEL ,AMA (LDL- CALC) chol/HDL ratio 2.7 . 0.0-5. 0 On January 27, 2023, [facility] labor atori judson pruitt ed the equat ion for calcu latin g estim ated low-d ensit y lipop rotei n-cho leste rol (LDL- C) from the Fried shawn equat ion to the Brandie n/Hop chhaya equat ion. This new equat ion is only valid for lipid panel s with trigl yceri jan < 400 mg/dL . Studi es have demon strat ed that this new equat ion will impro ve the accur acy of LDL-C , espec ially in scena rust when LDL-C barb ntrat ions are relat ively low (< 100 mg/dL ), trigl yceri jan are eleva jacinto, or patie nt is non-f astin g. Refer ences : - Brandie barlow, Mario Cook, Ta Tuttle , Omar lawton, [place], [place], Tom martínez , and Nitesh Shipman . 2013. Comp ariso n of a Novel Metho d vs the Fried shawn Equat ion for Estim ating Low-D ensit y Lipop rotei n Bella stero l Level s from the [facility] Lipid Profi le. DAVION: The Journ al of the Ameri can Medic al Assoc iatio n 310 19): 2060- . - Freya caraballo V, Alicia J, Selene ar A, Samreen M, Tiffany e R, Sherwin caraballo E, [facility] RS, Umberto SR, Brandie barlow SS. Fast ing Versu s Nonfa sting and Low-D ensit y Lipop rotei n Bella stero l Accur acy. Circu latio n. 2017Oct 06;137 (1):1 0-19. Not Available [facility] (Lab) [address], [place], [address], 08/26/2025 15:47:12 08/21/20 25 08/21/2025 TSH, REFLE X FREE T4 TSH 1.41 uIU/m L 0.30-5 .33 Not Available [facility] (Lab) [address], [place], [address], 08/26/2025 15:47:13 08/21/20 25 08/21/2025 T4 FREE T4, free 0.96 NG/dL 0.54-1 .24 This assay is susce ptibl e to inter ferpriscilla ce from high level s of bioti n which may false ly eleva te resul ts. Pleas e corre late with clini jenifer findi ngs. Not Available [facility] (Lab) [address], [place], [address], 08/26/2025 15:47:13 08/21/20 25 08/21/2025 VITAM IN D, 25-OH (TOTA L D2/D3 ) vitamin D, 25-hydroxy, total 28.4 NG/mL 30.0-1 00.0 low Sugge stive of Defic iency : <20 ng/mL Sugge stive of Insuf ficie ncy: 20-29 ng/mL Sugge stive of Suffi cienc y: 30-10 0 ng/mL Sugge stive of Toxic ity: >150 ng/mL Not Available [facility] (Lab) [address], [place], [address], 08/26/2025 15:47:13 08/21/20 25 08/21/2025 PROGE STERO NE progesterone 8.94 NG/mL The test metho d is elect greg milum inesc ence immun oassa y perfo rmed on the Greg Bossman e801. Value s obtai qiana with diffe rent assay metho ds by other labor atori es canno t be used inter pruitt leonarday . Femal e Proge stero ne Range s: Folli cular phase 0.06- 0.89 ng/mL Ovula tion phase 0.12- 12.00 ng/mL Lutea l phase 1.83- 23.90 ng/mL Postm enopa usal <0.05 -0.13 ng/mL Healt hy Pregn ant Women 1st Trime ster 11.0- 44.30 2nd Trime ster 25.40 -83.3 0 3rd Trime ster 58.70 -214. 00 Not Available [facility] (Lab) [address] [place], [address], 08/26/2025 15:47:14 08/21/20 25 08/21/2025 FSH, LH, ESTRA DIOL estradiol 95.2 pg/mL The test metho d is elect greg milum inesc ence immun oassa y perfo rmed on the Greg Bossman e801. Value s obtai qiana with diffe rent assay metho ds by other labor atori es canno t be used inter [facility] eably . Femal e Estra diol Range s: Folli cular phase 12.4- 233 pg/mL Ovula tion phase 41.0- 398 pg/mL Lutea l phase 22.3- 341 pg/mL Postm enopa usal <5-13 8 pg/mL Healt hy Pregn ant Women 1st Trime ster 154-3 243 pg/mL 2nd Trime ster 1561- 30831 pg/mL 3rd Trime ster 8525- >3000 0 pg/mL Not Available [facility] (Lab) [address] [place], [address], 08/26/2025 15:47:14 08/21/20 25 08/21/2025 FSH, LH, ESTRA DIOL FSH 6.4 mIU/m L The test metho d is elect greg milum inesc ence immun oassa y perfo rmed on the Greg Bossman e801. Value s obtai qiana with diffe rent assay metho ds by other labor atori es canno t be used inter [facility] . Femal es Folli cular : 3.5-1 2.5 mIU/m L Ovula tion: 4.7-2 1.5 mIU/m L Lutea l: 1.7-7 .7 mIU/m L Postm enopa use: 25.8- 134.8 mIU/m L Not Available [facility] (Lab) [address] [place], [address], 08/26/2025 15:47:14 08/21/20 25 08/21/2025 FSH, LH, ESTRA DIOL LH 7.5 mIU/m L The test metho d is elect greg milum inesc ence immun oassa y perfo rmed on the Greg Bossman e801. Value s obtai qiana with diffe rent assay metho ds by other labor atori es canno t be used inter [facility] . Femal es Mid-F ollic ular: 2.4-1 2.6 mIU/m L Mid-C ycle: 14.0- 95.6 mIU/m L Mid-L uteal : 1.0-1 1.4 mIU/m L Postm enopa use: 7.7-5 8.5 mIU/m L Not Available [facility] (Lab) [address], [place], [address], 08/26/2025 15:47:14 08/21/20 25 08/21/2025 PROLA CTIN prolactin, total 14.30 NG/mL 4.79-2 3.30 The test metho d is elect greg milum inesc ence immun oassa y perfo rmed on the Greg Bossman e801. Value s obtai qiana with diffe rent assay metho ds by other labor atori es canno t be used inter [facility] . Not Available [facility] (Lab) [address], [place], [address], 08/26/2025 15:47:15 08/21/20 25 08/21/2025 FREE T3 T3, free 2.30 pg/mL 2.00-4 .40 This assay is susce ptibl e to inter feren ce from high level s of bioti n which may false ly eleva te resul ts. Pleas e corre late with clini jenifer findi ngs inclu ding TSH and FT4 resul ts. If clini tomi indic ated, Free T3 by Equil ibrdanyellu m Dialy sis LC/MS may be perfo rmed. Not Available [facility] (Lab) [address], [place], [address], 08/26/2025 15:47:15 08/21/20 25 08/21/2025 TESTO STERO NE, FREE( DIALY SIS) AND TOTAL (LC/M S/MS) testosterone , total 34 NG/dL 2-45 For addit ional [facility] fu e refer to http: //amanda barlow.que stdia gnost ics.c om/fa q/ Total Testo stero neLCM SMSFA Q165 (This link is being provi ded for infor margo nal/ educa anita l purpo ses only. ) This test was devel oped and its mike tical perfo rmanc e maikol cteri stics have been deter mined by [employer] [place], [place]. It has not been clear ed or appro eduardo by the U.S. Food and Drug Admin istra tion. This assay has been valid ated pursu ant to the CLIA regul ation s and is used for clini jenifer purpo ses. Not Available [facility] (Lab) [address], [place], [address], 08/26/2025 15:47:15 08/21/2008/21/2025 TESTO STERO NE, FREE( DIALY SIS) AND TOTAL (LC/M S/MS) testosterone , free 2.8 pg/mL 0.1-6. 4 This test was devel oped and its mike tical perfo rmanc e maikol cteri stics have been deter mined by [employer] [place], [place]. It has not been clear ed or appro eduardo by the U.S. Food and Drug Admin istra tion. This assay has been valid ated pursu ant to the CLIA regul ation s and is used for clini jenifer purpo ses. Perfo rming Organ izati on [facility] aragon n: Site ID: AMD Name: [employer] pio whitley [facility] griffin Addre ss: [id number] [facility] [address] [place], [place] Direc tor: Charly Brar MD PhD Not Available [facility] (Lab) [address], [place], [address], 08/26/2025 15:47:15 02/21/20 20 US, pelvi s No observ ation record ed. thomas Donis [address], [place], [address], 02/22/2020 14:19:14 Result Notes None recorded. Problems Name Problem SNOMED Code Status Onset Date Resolution Date Notes Provider Name and Address Organization Details Recorded Time Ill-defi qiana intestin al infectio n Completed 201006/19/2021 No Show Fee;Prac ariel ID: 0001 Nargis hutchison [facility] 17:48:41 Speciali zed medical examinat ion Completed 201006/19/2021 Gynecolo gical Examinat ion;Johnie rded Elsewher e: No Locat ion: [facility] S ource: EHR Deboning Team Leader thierno: N Practi ce ID: 0001 Riley lable Time: 04:30:00 PM Nargis hutchison [facility] 17:49:31 Malaise and fatigue [id number] Completed 201006/19/2021 Fatigue And Malaise; Practice ID: 0001 Nargis hutchison [facility] 17:49:33 Threaten ed miscarri age [id number] Completed 201206/19/2021 Threaten ed , antepart um;Pract ice ID: 0001 Nargis hutchison [facility] 17:49:27 Primigra marcel [id number] Completed 201306/19/2021 Supervis ion of normal first pregnanc y;Practi ce ID: 0001 Nargis hutchison [facility] 17:49:03 Delivery normal [id number] Completed 201306/19/2021 Normal delivery ;Practic e ID: 0001 Nargis hutchison [facility] 17:44:42 Single live from singleto n pregnanc y [id number] Completed 201306/19/2021 Mother with single liveborn ;Practic e ID: 0001 Nargis hutchison [facility] 17:49:13 Depressi ve disorder [id number] Active 2013 Depressi ve disorder , not elsewher e classifi ed;Pract ice ID: 0001 Not Available [facility] 0 17:09:21 Vaginiti s and vulvovag initis Completed 201306/19/2021 Vaginiti s and vulvovag initis, unspecif ied;Prac ariel ID: 0001 Nargis Ayon [facility] 17:49:20 Postpart um care Completed 201306/19/2021 Post Followup ;Recorde d Elsewher e: No Locat ion: [facility] S ource: EHR Deboning Team Leader thierno: N Practi ce ID: 0001 Riley lable Time: 01:00:00 PM [facility] 17:46:41 Breast lump [id number] Completed 201406/19/2021 Lump or mass in breast;P [facility] ID[facility] 17:44:28 Venereal disease screenin g Completed 201406/19/2021 Screenin g examinat ion for venereal disease; Recorded Elsewher e: No [facility] S ource: EHR Deboning Team Leader thierno: N Practi ce ID: 0001 Riley lable Time: 03:30:00 PM Nargis hutchison [facility] 17:49:17 Amenorrh ea [id number] Completed 201406/19/2021 AMENORRH EA;Pract ice ID: 0001 Nargis Ayon [facility] 17:44:14 Overweig ht [id number] Completed 201406/19/2021 Overweig ht;Pract ice ID: 0001 [facility] 17:46:38 Pregnanc y test positive [id number] Completed 201406/19/2021 Positive Pregnanc y Test;Pra ctice ID: 0001 [facility] 17:49:00 Speciali zed medical examinat ion Completed 201406/19/2021 Other specifie d chlamydi al diseases ;Practic e ID: 0001 [facility] 17:49:29 Screenin g for malignan t neoplasm of cervix Completed 201406/19/2021 Pap Smear;Pr actice ID: 0001 [facility] 17:49:08 Antenata l screenin g Completed 201406/19/2021 ANTENATA L SCREENIN G NEC;Prac ariel ID: 0001 [facility] 17:44:23 anatomy study Completed 201406/19/2021 [facility] SURVEY;P ractice ID: 0001 [facility] 17:45:06 Ultrason ography Completed 201406/19/2021 Antenata l screenin g for malforma tion using ultrason ics;Prac ariel ID: 0001 [facility] 17:49:23 Congenit al malforma tion [id number] Completed 201406/19/2021 Antenata l screenin g for malforma tion using ultrason ics;Prac ariel ID: 0001 [facility] 17:44:31 Known OR suspecte d abnormal ity affectin g manageme nt of mother Completed 201406/19/2021 Other known or suspecte d abnormal ity, not elsewher e classifi ed, affectin g manageme nt of mother, antepart um conditio n or complica tion;Pra ctice ID: 0001 Nargis hutchison [facility] 17:49:36 Routine antenata l care Completed 201406/19/2021 Supervis ion of other normal pregnanc y;Practi ce ID: 0001 Nargis hutchison [facility] 17:49:06 Normal pregnanc y in multigra marcel [id number] Completed 201406/19/2021 Encounte r for supervis ion of other normal pregnanc y, third trimeste r;Record ed Elsewher e: No [facility]ce: EHR Deboning Team Leader thierno: N Practi ce ID: 0001 Riley lable Time: 03:30:00 PM Nargisluis miguel hutchison [facility] 17:46:35 Gestatio n period, 35 weeks [id number] Completed 201406/19/2021 35 weeks gestatio n of pregnanc y;Record ed Elsewher e: No [facility]ce: EHR Deboning Team Leader thierno: N Practi ce ID: 0001 Riley lable Time: 05:30:00 PM Nargis hutchison [facility] 17:45:11 Gestatio n period, 36 weeks [id number] Completed 201406/19/2021 36 weeks gestatio n of pregnanc y;Record ed Elsewher e: No Locat ion: [facility] S ource: EHR Deboning Team Leader thierno: N Practi ce ID: 0001 Riley lable Time: 04:00:00 PM Nargisluis [facility] 17:45:32 Disorder of pregnanc y Completed 201406/19/2021 Polyhydr amnios, third trimeste r, not applicab le or unsp;Rec orded Elsewher e: No Locat ion: Jamil sanchez [facility] S ource: EHR Deboning Team Leader thierno: N Practi ce ID: 0001 Riley lable Time: 05:00:00 PM Nargis hutchison [facility] 17:46:20 Gestatio n period, 37 weeks [id number] Completed 201406/19/2021 37 weeks gestatio n of pregnanc y;Record ed Elsewher e: No Locat ion: Jamil sanchez [facility] S ource: EHR Deboning Team Leader thierno: N Practi ce ID: 0001 Riley lable Time: 04:45:00 PM Nargis hutchison [facility] 17:45:24 Gestatio n period, 34 weeks [id number] Completed 201406/19/2021 34 weeks gestatio n of pregnanc y;Record ed Elsewher e: No Locat ion: [facility] S ource: EHR Deboning Team Leader thierno: N Practi ce ID: 0001 Riley lable Time: 03:00:00 PM Nargis hutchison [facility] 17:45:09 Gestatio n period, 38 weeks [id number] Completed 201406/19/2021 38 weeks gestatio n of pregnanc y;Practi ce ID: 0001 Nargis hutchison [facility] 17:45:26 Lochia finding Completed 201506/19/2021 Encounte r for routine postpart um follow-u p;Practi ce ID: 0001 Nargis hutchison [facility] 17:46:31 Acute vaginiti s [id number] Completed 201506/19/2021 Vaginiti s;Record ed Elsewher e: No Locat ion: Jamil sanchez [facility] S ource: EHR Deboning Team Leader thierno: N Practi ce ID: 0001 Riley lable Time: 03:30:00 PM [facility] 17:44:[address] Concept Completed 201506/19/2021 Encntr for criminalist exam (general ) (routine ) w/o abn findings ;Recorde d Elsewher e: No Locat ion: [facility] daniel [facility] S ource: EHR Deboning Team Leader thierno: N Practi ce ID: 0001 Riley lable Time: 03:00:00 PM N[facility]is [facility] 17:49:11 Body mass index 25-29 - overweig ht [id number] Completed 201506/19/2021 Body mass index (BMI) 27.0-27. 9, adult;Re corded Elsewher e: No Locat ion: [facility] S ource: EHR Deboning Team Leader thierno: N Practi ce ID: 0001 Riley lable Time: 03:00:00 PM Nargis [facility] 17:44:26 Pregnanc y test negative [id number] Completed 201706/19/2021 Encounte r for pregnanc y test, result negative ;Recorde d Elsewher e: No Locat ion: [facility] daniel [facility] S ource: EHR Deboning Team Leader thierno: N Practi ce ID: [id number] Riley lable Time: 10:30:00 AM Nargisluis miguel [facility] 17:46:45 Insertio n of intraute rine contrace ptive device Completed 201706/19/2021 Encounte r for insertio n of intraute rine contrace ptive device;R ecorded Elsewher e: No [facility] S ource: EHR Deboning Team Leader thierno: N Practi ce ID: [id number] Riley lable Time: 10:30:00 AM [facility] 17:46:28 BRCA2 gene mutation detected [id number] Active 2020 Jose Patel MD [address], [place], [address], [facility] 18:08:26 Problem Notes None recorded. Procedures Surgical History Date Name Laterality Status Provider Name and Address Organization Details Recorded Time 5 Date of Last Mammogram completed [facility] 08/21/2025 10:08:45 4 Date of Last Pap Smear completed [facility] 08/21/2025 10:08:25 Imaging Results None recorded. Procedure Notes None recorded. Medical Equipment None Reported. Allergies No known drug allergies Medications Name Sig Start Date Stop Date Status Note LastModified by Organization Details LastModified Time cyclobenz aprine 10 mg tablet take 1 tablet by oral route 2 times every day as needed for back pain 10/17 completed Prescrib jacob Ruvalcaba e: No Locat ion: [facility] odify By: [email or web address] so DateTime : 08/15/20 04:04:12 PM Not Available Not Available Not Available lamotrigi ne 150 mg tablet TAKE 1 TABLET BY MOUTH TWICE DAILY 07/14 completed Not Available Not Available Not Available doxycycli ne hyclate 100 mg capsule 07/14 completed Not Available Not Available Not Available lamotrigi ne 200 mg tablet TAKE 2 TABLETS BY MOUTH ONCE DAILY IN THE MORNING FOR 30 DAYS, FOR MOOD STABILIZ ATION. active Not Available Not Available No t Available azithromy morena 250 mg tablet TAKE 2 TABLETS BY MOUTH ON DAY 1, AND THEN TAKE 1 TABLET BY MOUTH ONCE A DAY ON DAY 2 THROUGH DAY 5 07/14 completed Not Available Not Available Not Available tretinoin 0.025 % topical cream PLEASE SEE ATTACHED FOR DETAILED DIRECTIO NS active Not Available Not Available No t Available metronida zole 0.75 % (37.5 mg/5 gram) vaginal gel INSERT 1 APPLICAT ORFUL INTO VAGINA ONCE DAILY 07/14 completed Not Available Not Available Not Available sertralin e 100 mg tablet TAKE 1 & 1 2 (ONE & ONE HALF) TABLETS BY MOUTH ONCE DAILY 07/14 completed Not Available Not Available Not Available Zoloft 20 mg/mL oral concentra te take 2.5 millilit er by oral route every day and mix with 4 oz. (1/2 cup) of water, alana darren, lemon/li me soda, lemonade or orange juice ONLY for the 2 weeks before the onset of menses 06/19 completed Prescrib ed Elsewher e: Yes [facility] By: sandie doyle DateTime : 02/15/20 19 09:15:00 AM Not Available Not Available Not Available topiramat e 25 mg tablet TAKE 1 TABLET BY MOUTH ONCE DAILY 07/14 completed Not Available Not Available Not Available triamcino lone acetonide 0.1 % topical cream APPLY TOPICALL Y TO AFFECTED AREAS ON HANDS ONE TO TWO TIMES DAILY FOR UP TWO CONSECUT ELLIOTT WEEKS. THEN USE NEEDED FOR FLARES. AVOID FACE, AXILLA, AND GROIN. USE FOR MILD FLARING active Not Available Not Available No t Available phentermi ne 30 mg capsule TAKE 1 CAPSULE BY MOUTH DAILY active Not Available Not Available No t Available lamotrigi ne 25 mg tablet TAKE 2 TABLETS BY MOUTH ONCE DAILY 06/19 completed Not Available Not Available Not Available alprazola m 0.5 mg tablet TAKE 1 TABLET BY MOUTH ON NEEDED BASIS, UP TO ONCE A DAY. MUST LAST 30 DAYS active Not Available Not Available No t Available Zoloft 50 mg tablet take 1 tablet (50MG) by oral route every day 09/12 completed Prescrib ed Elsewher e: No Locat ion: [facility] odify By: belkis phelps DateTime : 01/10/20 14 11:11:32 AM Not Available Not Available Not Available tacrolimu s 0.1 % topical ointment APPLY OINTMENT TO AFFECTED AREA OF THE UNDER ARMS 1-2 TIMES DAILY 08/21 completed Not Available Not Available Not Available oseltamiv ir 75 mg capsule TAKE 1 CAPSULE BY MOUTH TWICE DAILY FOR 5 DAYS 08/21 completed Not Available Not Available Not Available Nor-Q-D 0.35 mg tablet take 1 tablet by oral route every day 12/30 completed Prescrib ed Elsewher e: No Locat ion: [facility] odify By: [email or web address] Ksenia r DateTime : 10/17/19 16 11:15:00 AM Not Available Not Available Not Available Vitamin D2 1,250 mcg (50,000 unit) capsule take 1 capsule ([id number] ITS) by oral route every week 06/29 completed Prescrib ed Elsewher e: No Locat ion: [facility] odify By: [email or web address] Encount er DateTime : 03/27/20 15 03:39:54 PM Not Available Not Available Not Available topiramat e 100 mg tablet TAKE 1 TABLET BY MOUTH ONCE DAILY FOR 30 DAYS 07/14 completed Not Available Not Available Not Available ParaGard T 380A 380 square mm intrauter ine device Take by intraute rine route. active Not Available Not Available No t Available lamotrigi ne 100 mg tablet TAKE 1 & 1 2 (ONE & ONE HALF) TABLETS BY MOUTH ONCE DAILY 06/19 completed Not Available Not Available Not Available Xanax 1 mg tablet take 1 tablet by oral route 3 times every day 12/16 completed Prescrib ed Elsewher e: Yes Loca tion: [facility] odify By: [email or web address] Ksenia r DateTime : 09/17/20 11 04:30:00 PM Not Available Not Available Not Available bupropion HCl SR 200 mg tablet,12 hr sustained -release TAKE 1 TABLET BY MOUTH TWICE DAILY 07/14 completed Not Available Not Available Not Available bupropion HCl XL 300 mg 24 hr tablet, extended release TAKE 1 TABLET BY MOUTH ONCE DAILY IN THE MORNING 07/14 completed Not Available Not Available Not Available topiramat e 50 mg tablet TAKE 1 TABLET BY MOUTH TWICE DAILY active Not Available Not Available No t Available Zoloft 06/19 completed Not Available Not Available Not Available Vyvanse 70 mg capsule TAKE 1 CAPSULE BY MOUTH ONCE DAILY IN THE MORNING FOR 30 DAYS 07/14 completed Not Available Not Available Not Available Pristiq 50 mg tablet,ex tended release take 1 tablet by oral route every day 12/16 completed Prescrib ed Elsewher e: Yes Loca tion: [facility] odify By: corina doyle DateTime : 09/17/20 11 04:30:00 PM Not Available Not Available Not Available Chuckie fajardoo DHA 29 mg-1 mg-400 mg oral pack take 2 by Oral route every day for 30 days 02/06 completed Prescrib ed Elsewher e: No Locat ion: [facility] odify By: julia Keating er DateTime : 06/30/20 14 09:57:31 AM Not Available Not Available Not Available bupropion HCl XL 450 mg 24 hr tablet, extended release TAKE 1 TABLET BY MOUTH IN THE MORNING FOR DEPRESSI VE SYMPTOMS active Not Available Not Available No t Available Vraylar 1.5 mg capsule 07/14 completed Not Available Not Available Not Available Anusol-HC 2.5 % topical cream with perineal applicato r apply by topical route 2 times every day to the affected area(s) 02/06 completed Prescrib ed Elsewher e: No Locat ion: [facility] odify By: julia Keating er DateTime : 03/13/20 14 01:00:00 PM Not Available Not Available Not Available Vitals Date Recorded Body height Body mass index (BMI) Body weight Systolic And Diastolic Provider Name and Address Organization Details Last Updated DateTime 02/21/2020 170.18 cm 33.5 kg/m2 44343.77 g 102/70 mm[Hg] Marlene Espinoza [facility] 02/21/2020 15:56:50 Date Recorded Body height Body mass index (BMI) Body weight Systolic And Diastolic Provider Name and Address Organization Details Last Updated DateTime 06/19/2021 170.18 cm 28.7 kg/m2 95693.4 g 121/81 mm[Hg] Nargis Ayon [facility] 06/19/2021 17:43:50 Date Recorded Body height Body mass index (BMI) Body weight Systolic And Diastolic Provider Name and Address Organization Details Last Updated DateTime 07/14/2024 170.18 cm 25.1 kg/m2 03305.78 g 106/72 mm[Hg] Iveth Jose D [facility] 07/14/2024 10:00:43 Date Recorded Body height Body mass index (BMI) Body weight Systolic And Diastolic Provider Name and Address Organization Details Last Updated DateTime 08/21/2025 170.18 cm 23.8 kg/m2 96408.04 g 107/71 mm[Hg] Iveth Jose D [facility] 08/21/2025 10:06:39 Social History Question Answer Notes LastModified by Organizat ion Details LastModified Time Tobacco Smoking Status Never Smoker Not Available [facility] 08/07/2020 03:28:11 Do You Have An Advance Directive? No Information n ot available 08/21/2025 How Many Years Have You Consumed Alcohol? 10 Information not available 08/21/2025 Are You Blind Or Do You Have Difficulty Seeing? No Information n ot available 08/21/2025 What Is Your Level Of Caffeine Consumption? Moderate Information not available 08/21/2025 How Much Tobacco Do You Chew? None Information not available 08/21/2025 In The 14 Days Before Symptom Onset, Have You Had Close Contact With A Laboratory-confirm ed COVID-19 While That Case Was Ill? No Information n ot available 07/14/2024 In The 14 Days Before Symptom Onset, Have You Had Close Contact With A Person Who Is Under Investigation For COVID-19 While That Person Was Ill? No Information not available 07/14/2024 Have You Been To An Area Known To Be High Risk For COVID-19? No Information not available 07/14/2024 Are You Deaf Or Do You Have Serious Difficulty Hearing? No Information not available 08/21/2025 What Type Of Diet Are You Following? CARBOHYDRATE Information n ot available 08/21/2025 What Is The Highest Grade Or Level Of School You Have Completed Or The Highest Degree You Have Received? [id number] Information not available 08/21/2025 Are There Any Guns Present In Your Home? No Information not available 08/21/2025 Do You Use Protection During Sex? Always Information not available 08/21/2025 Do You Use Your Seat Belt Or Car Seat Routinely? Yes Information not available 08/21/2025 Do You Have Smoke And Carbon Monoxide Detectors In Your Home? Yes Information not available 08/21/2025 How Much Tobacco Do You Smoke? No Information not available 08/21/2025 Do You Use Sunscreen Routinely? Yes Information not available 08/21/2025 Have You Used IV Drugs? No Information not available 08/21/2025 Sex: Unknown Functional Status Question Answer Note LastModified by Organizat ion Details LastModified Time Do you use any illicit or recreational drugs? No Information not available 08/21/2025 What is your level of alcohol consumption? Occasional Information not available 08/21/2025 Are you able to walk independently without assistance or assistive devices? 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 Occasional Information not available 08/21/2025 Mental Status Question Answer Note LastModified by Organization D etails LastModified Time Do you feel stressed (tense, restless, nervous, or anxious, or unable to sleep at night)? [id number] Information not available 08/21/2025 Family History Relationship Description Onset Age of this Age Resolved Age Notes LastModified by Organization Details LastModified Time Maternal Grandmother Carcinoma in situ of colon [email or web address] Not available 08/05 09:50:45 Maternal Grandmother Carcinoma in situ of breast [email or web address] Not available 08/05 09:50:45 Paternal Grandmother Carcinoma in situ of lung [email or web address] Not available 10/21/2024 09:50:45 Mother Carcinoma in situ of breast [email or web address] Not available 08/05 09:50:45 Paternal Grandfather Carcinoma in situ of colon [email or web address] Not available 08/05 09:50:45 Maternal Grandfather Hypertensive disorder smcaley Not available 2019 10:59:42 Medical History Condition Response Anxiety Disorder Y Depression/ depression Y Gynecological History Statement/Question Response Abnormal Pap N Date of Last Mammogram 03/05/2025 Flow Moderate Date of LMP 08/04/2025 On BCP's at Conception? N N Was last menstrual period normal Y STIs/STDs N HPV Vaccine Y Duration of Flow (days) 4 Current Control Method IUD Age at First Child 28 Are cycles usually normal Y Frequency of Cycle (Q days) 24 Sexually Active? Y Menses Monthly Y Age of first menstrual cycle 15 Date of Last Pap Smear 07/14/2024 Sexual Problems? N LMP Unknown N Obstetrics History GPAL:G 2 P 2 0 0 2 Type Value Full Term 2 Living 2 Total 2 Past Encounters Encounter ID Performer Location Encounter Start Date Encounter Closed Date Diagnosis/Indication Diagnosis SNOMED-CT Code Diagnosis ICD10 Code Diagnosis IMO Codes Diagnosis Note [id number] Jose Patel MD [facility] [address],[place] [address] 02/08/2020 10:02:12 02/08/2020 11:06:38 Abnormal uterine bleeding 9795103406 9100 N93.9 [id number] MD Donna Talavera [address],[place] [address] 02/21/2020 15:31:33 02/21/2020 16:09:22 Abnormal uterine bleeding [id number] 9100 N93.9 [id number] MD Donna Talavera [address],[place] [address] 02/21/2020 15:31:52 02/21/2020 16:46:31 Intermenstrual spotting caused by intrauterine device 098977476 T83.89XD This patient is a 34-year-ol d female with intermenst rual bleeding. It may be due to her IUD. We talked about further evaluation with a hysterosco py. We also talked about a trial of OCPs. We agreed to just 1 month of OCPs and I gave her a pack of 20 mcg C OCPs. She will return as needed. [id number] Jose Patel MD [facility] [address],[place] [address] 06/19/2021 17:37:03 06/20/2021 13:50:23 Gynecologic examination 28074228 Z01.419 This patient is here for her annual exam. A thorough history was taken. A physical exam was performed. Age appropriat e routine health screening was ordered, performed, and discussed. Recommende d testing was ordered. She was asked to follow up in one year. She will be informed of any test results. Cholestero l - [done] Pap - today Bacterial vaginosis 4197 44575 N76.0 [id number] Jose Patel MD [facility] [address] [address] 07/14/2024 09:42:29 07/14/2024 10:32:18 Gynecologic examination 31782178 Z01.419 Z11.51 This patient is here for her annual exam. A thorough history was taken. A physical exam was performed. Age appropriat e routine health screening was ordered, performed, and discussed. Recommende d testing was ordered. She was asked to follow up in one year. She will be informed of any test results. Cholestero l - [done] Pap - today [id number] Jose Patel MD [facility] [address] [address] 08/21/2025 09:50:24 08/21/2025 10:41:41 Loss of hair 065325610 L65.9 [id number] Gynecologi c examination 27802653 Z01.419 [id number] This patient is here for her annual exam. A thorough history was taken. A physical exam was performed. Age appropriat e routine health screening was ordered, performed, and discussed. Recommende d testing was ordered. She was asked to follow up in one year. She will be informed of any test results. Cholestero l - [done] Pap - today Health Concerns Section Related Observation LastModified by Organization Detai ls LastModified Time None Recorded Concern Status LastModified by Organization Details LastModified Time None Recorded Advance Directives Directive N: Payers Insurance Date Sequence Insurance Name Policy Number Policy Orozco Covered Member ID Orozco Member ID Guarantor Name 08/18/2025 1 [employer] ([place] [id number] Sapna Fuentes [id number] Daniel Burtoner 05/24/2024 1 [employer] [facility] (PPO) Sapna Bryant Langreder [id number] Sapna Bryant Langreder 05/24/2024 1 [employer] (PPO) [id number] Sapna Bryant Langreder [id number] Sapna Bryant Langreder 05/24/2024 1 [facility] (PPO[facility] [id number] Sapna Bryant Langreder [id number] Sapna Bryant Langreder Notes Date Note Type Note Provider Name and Address Organization Details Recorded Time 02/21/20 20 text/ht ml This patient is a 34-year-old female with intermenstrual bleeding. We gathered a laboratory evaluation and an ultrasound evaluation. Both of those were unremarkable. We talked about her symptoms again. It is strictly light spotting/intermenstrual bleeding. Jose Patel MD [address], [place], [address], [facility] 02/21/2020 16:20:58 06/19/20 21 text/ht ml Annual GYNReported by PatientHistoryFor history, patient reportsno gynecologic complaints.Genitourinary symptomsFor vagina, patient reportsfoul-smelling. For menstrual cycle, patient reportsnormal menses. For urinary symptoms, patient reportsno hematuria. For vulva, patient reportsno genital lesion.Breast symptomsFor breast, patient reportsno breast pain,no breast lump, andno nipple discharge.ContraceptionFor current contraception, patient reportssatisfied with current contraception.Endocrine symptomsFor sexual complaints, patient reportsno sexual complaints,no pain during intercourse, andnormal libido. For menopausal symptoms, patient reportsno menopausal symptomsandnormal vaginal lubrication.Psychological symptomsFor psychological symptoms, patient reportsanxietybut reportsno depression(txed, stable).Preventative measuresFor preventive measures, patient reportsencourage self breast examinationandencourage regular exercise. Jose Patel MD [address], [place], [address], [facility] 06/19/2021 18:21:36 07/14/20 24 text/ht ml Annual GYNReported by PatientHistoryFor history, patient reportsno gynecologic complaints.Genitourinary symptomsFor menstrual cycle, patient reportsnormal menses. For urinary symptoms, patient reportsno hematuriaandno incontinence. For vulva, patient reportsno genital lesion. For vagina, patient reportsnormal vaginal discharge.Breast symptomsFor breast, patient reportsno breast painandno breast lump.ContraceptionFor current contraception, patient reportssatisfied with current contraceptionandintrauterine device (iud).Endocrine symptomsFor sexual complaints, patient reportsno sexual complaints.Psychological symptomsFor psychological symptoms, patient reportsdepressionandanxiety(txe d).Preventative measuresFor preventive measures, patient reportsencourage self breast examinationandencourage regular exercise. Jose Patel MD [address], [place], [address], [facility] 07/14/2024 10:31:14 08/21/20 25 text/ht ml Annual GYNReported by PatientHistoryFor history, patient reportsno gynecologic complaints.Genitourinary symptomsFor menstrual cycle, patient reportsnormal menses. For urinary symptoms, patient reportsno hematuria. For vulva, patient reportsno genital lesion. For vagina, patient reportsnormal vaginal discharge.Breast symptomsFor breast, patient reportsno breast painandno breast lump.ContraceptionFor current contraception, patient reportssatisfied with current contraceptionandintrauterine device (iud).Endocrine symptomsFor sexual complaints, patient reportsdecreased libidobut reportsno sexual complaintsandno pain during intercourse. For menopausal symptoms, patient reportsno menopausal symptomsandnormal vaginal lubrication.Psychological symptomsFor psychological symptoms, patient reportsno depressionandno anxiety.Preventative measuresFor preventive measures, patient reportsencourage self breast examinationandencourage regular exercise. Jose Patel MD [address], [place], [address], [facility] 08/21/2025 10:40:19 OBGyn Episode Ob Episode Information Episode Created Date Number of Fetuses Patient Bloodtype Patient rh Status Prepregnancy Weight lbs Domestic Partner Domestic Partner Phone Father Name Referral Clerk Status 02/08/20 20 1 CLOSED Fetus Data First Name Last Name Admitted to NICU Weight (g) Sex Living Outcome Pediatric Complications Fetus ID Race Codes Race Delivery Type 3316.66 [id number] F Full Term 1202 Vaginal Delivery Wilfredo Calculation Initial Wilfredo Date Initial Exam Date Initial Exam Provider Initial Ultrasound Date Last Menstrual Period Date Ultra Sound Weeks Gestation 0 Eighteen To Twenty Week Wilfredo Update Ultra Sound Date Fundal Height At Umbil Quickening Date Ultra Sound Latest Weeks Gestation Final Wilfredo Confirmed By Final Wilfredo Confirmed Date Final Wilfredo Date Ultra Sound Latest Days Gestation 0 0 Menstrual History Last Menstrual Date Menses Monthly On Bcp Conception Prior Menses Frequency Hcg Plus Date Menarche Onset Age Delivery Information Delivery Date Delivery Type Labor Anesthesia Weeks Gestation Incision Type Labor Labor Length Hrs Delivered By Post Complications Tubal Sterilization Discharge Date Comments 4 39 Discharge Information Feeding Method Contraceptive Method Maternal HG B and HCT Levels Ob Episode Information Episode Created Date Number of Fetuses Patient Bloodtype Patient rh Status Prepregnancy Weight lbs Domestic Partner Domestic Partner Phone Father Name Referral Clerk Status 02/08/20 20 1 CLOSED Fetus Data First Name Last Name Admitted to NICU Weight (g) Sex Living Outcome Pediatric Complications Fetus ID Race Codes Race Delivery Type 3572.03 7 M Full Term 1203 Vaginal Delivery Wilfredo Calculation Initial Wilfredo Date Initial Exam Date Initial Exam Provider Initial Ultrasound Date Last Menstrual Period Date Ultra Sound Weeks Gestation 0 Eighteen To Twenty Week Wilfredo Update Ultra Sound Date Fundal Height At Umbil Quickening Date Ultra Sound Latest Weeks Gestation Final Wilfredo Confirmed By Final Wilfredo Confirmed Date Final Wilfredo Date Ultra Sound Latest Days Gestation 0 0 Menstrual History Last Menstrual Date Menses Monthly On Bcp Conception Prior Menses Frequency Hcg Plus Date Menarche Onset Age Delivery Information Delivery Date Delivery Type Labor Anesthesia Weeks Gestation Incision Type Labor Labor Length Hrs Delivered By Post Complications Tubal Sterilization Discharge Date Comments 5 39 polyhydr a mnios Discharge Information Feeding Method Contraceptive Method Maternal HG B and HCT Levels
--- OUTSIDE RECORDS SUMMARY | 2025-09-25 09:00 | XMS_ITS | Continuity of Care Document ---
Author Organization [facility] Address [address] [place] [address] Care Team Providers Care Speech Therapist Technician Name Role Phone DIMITRIOS DIGGSIA Primary Care Provider Assessment Encounter Date Assessment Date Assessment LastModified by Organization Details LastModified Time 08/21/2025 08/21/2025 Annual gynecological exam performed. Patient will come back in a year unless there are new symptoms. Not available 08/21/2025 10:06:08 Plan of Treatment Reminders Order Date Submit Date Provider Last Modified By Organization Details Last Modified Time Details Appointments None recorded. Lab hormone panel, serum or plasma 2024 [facility] (Lab), [address], [place], [address], 15:47:14 testosteron e free/testos terone total, ratio, serum 2024 025 [facility] (Lab), [address], [place], [address], 5 15:47:16 free T3, quantitativ e, dialysis serum or plasma 2024 025 [facility] (Lab), [address], [place], [address], 5 15:47:15 T4, free, serum 2024 025 [facility] (Lab), [address], [place], [address], 5 15:47:13 prolactin, serum 2024 025 [facility] (Lab), [address], [place], [address], 5 15:47:15 progesteron e, serum 2024 [facility] (Lab), [address], [place], [address], 5 15:47:14 CBC w/ auto diff [address] [place] [address] (Lab), [address], [place], [address], 5 15:47:11 CMP, serum or plasma [address] [place] [address] (Lab), [address], [place], [address], 5 15:47:12 lipid panel, blood [address] [place] [address] (Lab), [address], [place], [address], 5 15:47:12 TSH, serum or plasma [address] [place] [address] (Lab), [address], [place], [address], 5 15:47:13 25-hydroxyv itamin D2 + 25-hydroxyv itamin D3, QN, serum or plasma [address] [place] [address] (Lab), [address], [place], [address], 5 15:47:13 Referral None recorded. Procedures None recorded. Surgeries None recorded. Imaging None recorded. Medication Orders None recorded. Patient TargetsNo targets recorded. Patient InstructionsNo instructions recorded. Reason for Referral None Reported. Results Created Date Observation Date Name Description Value Unit Range Abnormal Flag Note LastModifiedBy Organization Detail LastModifiedTime 08/21/20 25 08/21/2025 IMAGE GUIDE D PAP AND HPV REGAR DLESS image guided Pap, HPV regardless of Pap result SEE RESULT S BELOW CASE REPOR T: Cytol ogy Gynec ologi jenifer Repor t Case: [id number] Autho robbin balderrama Provi laura: Russ Patel MD Colle cted: 08/21 1306 Order ing Locat ion: [place] [facility] Recei eduardo: 08/22 0738 First Syed n: Phuong Polanco Speci men: Syed mcleod Pap - Image d, Cervi x STATE MENT OF ADEQU ACY: Satis facto ry for evalu ation Trans forma tion zone compo nent prese nt ----- ----- ----- ----- ----- ----- ----- ----- ----- ----- ----- ----- ----- ----- ----- ----- ----- ---- FINAL DIAGN OSIS: Negat elliott for Intra epith elial Shelley barlow or Flakita wiggins (NIL) . 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 Not Available [facility] (Lab) [address], [place], [address], 08/24/2025 18:20:37 08/21/20 25 08/21/2025 CBC W/DIF F WBC 5.2 10'3/ uL 3.5-[address] [facility] (Lab) [address], [place], [address], 08/26/2025 15:47:11 08/21/20 25 08/21/2025 CBC W/DIF F RBC 4.50 10'6/ uL (based on docume nted legal sex) 3.80-[address] [facility] (Lab) [address], [place], [address], 08/26/2025 15:47:11 08/21/20 25 08/21/2025 CBC W/DIF F HGB 13.7 g/dL (based on docume nted legal sex) 11.6-[address] [facility] (Lab) [address], [place], [address], 08/26/2025 15:47:11 08/21/20 25 08/21/2025 CBC W/DIF F HCT 42.0 % (based on docume nted legal sex) 34.0-[address] [facility] (Lab) [address], [place], [address], 08/26/2025 15:47:11 08/21/20 25 08/21/2025 CBC W/DIF F MCV 93.3 fL 80.0-[address] [facility] (Lab) [address], [place], [address], 08/26/2025 15:47:11 08/21/20 25 08/21/2025 CBC W/DIF F MCH 30.4 pg 27.0-[address] [facility] (Lab) [address] [place], [address], 08/26/2025 15:47:11 08/21/20 25 08/21/2025 CBC W/DIF F MCHC 32.6 g/dL 32.0-[address] [facility] (Lab) [address] [place], [address], 08/26/2025 15:47:11 08/21/20 25 08/21/2025 CBC W/DIF F RDW 12.9 % 11.0-[address] [facility] (Lab) [address] [place], [address], 08/26/2025 15:47:11 08/21/20 25 08/21/2025 CBC W/DIF F plt 321 10'3/ uL 150-[address] [facility] (Lab) [address] [facility], [place], [address], 08/26/2025 15:47:11 08/21/20 25 08/21/2025 CBC W/DIF F MPV 10.0 fL 8.8-[address] [facility] (Lab) [address] [facility], [place], [address], 08/26/2025 15:47:11 08/21/20 25 08/21/2025 CBC W/DIF F NRBC's 0.0 % 0.[address] [facility] (Lab) [address] [facility], [place], [address], 08/26/2025 15:47:11 08/21/20 25 08/21/2025 CBC W/DIF F absolute NRBCs 0.0 10'3/ uL no refere nce range establ ished Not Available [facility] (Lab) [address] [facility], [place], [address], 08/26/2025 15:47:11 08/21/20 25 08/21/2025 CBC W/DIF F neutrophils 51.3 % 34.0-[address] [facility] (Lab) [address] [facility], [place], [address], 08/26/2025 15:47:11 08/21/20 25 08/21/2025 CBC W/DIF F lymphocytes 38.0 % 15.0-[address] [facility] (Lab) [address] [facility], [place], [address], 08/26/2025 15:47:11 08/21/20 25 08/21/2025 CBC W/DIF F monocytes 7.8 % 1.0-[address] [facility] (Lab) [address] [facility], [place], [address], 08/26/2025 15:47:11 08/21/20 25 08/21/2025 CBC W/DIF F eosinophils 1.5 % 0.0-8. [address] [facility] (Lab) [address] [facility], [place], [address], 08/26/2025 15:47:11 08/21/20 25 08/21/2025 CBC W/DIF F basophils 1.0 % 0.0-2. [address] [facility] (Lab) [address] [facility], [place], [address], 08/26/2025 15:47:11 08/21/20 25 08/21/2025 CBC W/DIF [...] separ ately if prese nt. Not Available [facility] (Lab) [address] [facility], [place], [address], 08/26/2025 15:47:11 08/21/20 25 08/21/2025 CBC W/DIF F absolute neutrophils 2.7 10'3/ uL 1.5-8. [address] [facility] (Lab) [address] [facility], [place], [address], 08/26/2025 15:47:11 08/21/20 25 08/21/2025 CBC W/DIF F absolute lymphocytes 2.0 10'3/ uL 1.0-4. [address] [facility] (Lab) [address] [facility], [place], [address], 08/26/2025 15:47:11 08/21/20 25 08/21/2025 CBC W/DIF F absolute monocytes 0.4 10'3/ uL 0.2-1. [address] [facility] (Lab) [address] [facility], [place], [address], 08/26/2025 15:47:11 08/21/20 25 08/21/2025 CBC W/DIF F absolute eosinophils 0.1 10'3/ uL 0.0-0. [address] [facility] (Lab) [address] [facility], [place], [address], 08/26/2025 15:47:11 08/21/20 25 08/21/2025 CBC W/DIF F absolute basophils 0.1 10'3/ uL 0.0-0. [address] [facility] (Lab) [address], [place], [address], 08/26/2025 15:47:11 08/21/20 25 08/21/2025 CBC W/DIF F absolute immature granulocytes 0.0 10'3/ uL 0.00-0 .10 Refer ence range s for nonbi nary/ inter sex or unspe cifie d gende r patie nts have not been estab lishe d. Pleas e refer to the prudenceo wing table for range s estab lishe d for cisge nder patie nts and evalu ate in the clini jenifer tonie xt of the indiv idual patie nt: https ://shayan rick book. nm.or g/gen derx Not Available [facility] (Lab) [address], [place], [address], 08/26/2025 15:47:11 08/21/20 25 08/21/2025 CMP(C OMPRE HENSI VE METAB OLIC PANEL ) sodium 141 mmol/ L 133-[address] [facility] (Lab) [address], [place], [address], 08/26/2025 15:47:12 08/21/20 25 08/21/2025 CMP(C OMPRE HENSI VE METAB OLIC PANEL ) potassium 4.2 mmol/ L 3.5-5. [address] [facility] (Lab) [address] [facility], [place], [address], 08/26/2025 15:47:12 08/21/20 25 08/21/2025 CMP(C OMPRE HENSI VE METAB OLIC PANEL ) chloride 106 mmol/ L 98-[address] [facility] (Lab) [address] [facility], [place], [address], 08/26/2025 15:47:12 08/21/20 25 08/21/2025 CMP(C OMPRE HENSI VE METAB OLIC PANEL ) carbon dioxide 28 mmol/ L 21-[address] [facility] (Lab) [address] [facility], [place], [address], 08/26/2025 15:47:12 08/21/20 25 08/21/2025 CMP(C OMPRE HENSI VE METAB OLIC PANEL ) anion gap 7 mmol/ L 4-[address] [facility] (Lab) [address] [facility], [place], [address], 08/26/2025 15:47:12 08/21/20 25 08/21/2025 CMP(C OMPRE HENSI VE METAB OLIC PANEL ) blood urea nitrogen 15 mg/dL 7-25 Not Available [facility] (Lab) [address] [facility], [place], [address], 08/26/2025 15:47:12 08/21/20 25 08/21/2025 CMP(C OMPRE HENSI VE METAB OLIC PANEL ) creatinine 0.97 mg/dL 0.60-[address] [facility] (Lab) [address] [facility], [place], [address], 08/26/2025 15:47:12 08/21/20 25 08/21/2025 CMP(C OMPRE HENSI VE METAB OLIC PANEL ) egfrcr (CKD-epi 2020) 77 mL/mi n/1.7 3_m2 >=[address] [facility] (Lab) [address] [facility], [place], [address], 08/26/2025 15:47:12 08/21/20 25 08/21/2025 CMP(C OMPRE HENSI VE METAB OLIC PANEL ) calcium 8.6 mg/dL 8.3-[address] [facility] (Lab) [address] [facility], [place], [address], 08/26/2025 15:47:12 08/21/20 25 08/21/2025 CMP(C OMPRE HENSI VE METAB OLIC PANEL ) glucose 77 mg/dL 70-[address] [facility] (Lab) [address] [facility], [place], [address], 08/26/2025 15:47:12 08/21/20 25 08/21/2025 CMP(C OMPRE HENSI VE METAB OLIC PANEL ) protein, total 6.4 g/dL 6.4-8. [address] [facility] (Lab) [address] [facility], [place], [address], 08/26/2025 15:47:12 08/21/20 25 08/21/2025 CMP(C OMPRE HENSI VE METAB OLIC PANEL ) albumin 4.1 g/dL 3.5-5. [address] [facility] (Lab) [address] [facility], [place], [address], 08/26/2025 15:47:12 08/21/20 25 08/21/2025 CMP(C OMPRE HENSI VE METAB OLIC PANEL ) ALT 20 units /L 9-[address] [facility] (Lab) [address] [facility], [place], [address], 08/26/2025 15:47:12 08/21/20 25 08/21/2025 CMP(C OMPRE HENSI VE METAB OLIC PANEL ) alkaline phosphatase 63 units /L 34-[address] [facility] (Lab) [address] [facility], [place], [address], 08/26/2025 15:47:12 08/21/20 25 08/21/2025 CMP(C OMPRE HENSI VE METAB OLIC PANEL ) AST 18 units /L 13-[address] [facility] (Lab) [address] [facility], [place], [address], 08/26/2025 15:47:12 08/21/20 25 08/21/2025 CMP(C OMPRE HENSI VE METAB OLIC PANEL ) bilirubin, total 0.3 mg/dL 0.2-1. [address] [facility] (Lab) [address] [facility], [place], [address], 08/26/2025 15:47:12 08/21/20 25 08/21/2025 LIPID PANEL ,AMA (LDL- CALC) total cholesterol 178 mg/dL 0-199 Not Available [facility] (Lab) [address] [place], [address], 08/26/2025 15:47:12 08/21/20 25 08/21/2025 LIPID PANEL ,AMA (LDL- CALC) triglyceride s 57 mg/dL 0-150 NCEP Refer ence Value s for Trigl yceri jan: Rika l: <150 mg/dL Borde rline High: 150 - 199 mg/dL High: 200 - 499 mg/dL Very High: >/= 500 mg/dL Not Available [facility] (Lab) [address] [facility], [place], [address], 08/26/2025 15:47:12 08/21/20 25 08/21/2025 LIPID PANEL ,AMA (LDL- CALC) HDL cholesterol 66 mg/dL >40 Not Available [facility] (Lab) [address] [place], [address], 08/26/2025 15:47:12 08/21/20 25 08/21/2025 LIPID PANEL ,AMA (LDL- CALC) LDL cholesterol 98 mg/dL 0-99 Cutof f value s recom caitlin d by the Geovanni briceno Bella stero l Educa tion Progr am: GISELLE ABLE: Bella stero l <200 mg/dL LDL <100 mg/dL BORDE RLINE : Bella stero l 200-2 39 mg/dL LDL 101-1 59 mg/dL HIGHE R RISK: Bella stero l >240 mg/dL LDL >160 mg/dL , HDL <40 mg/dL Not Available [facility] (Lab) [address] [facility], [place], [address], 08/26/2025 15:47:12 08/21/2008/21/2025 LIPID PANEL ,AMA (LDL- CALC) non-HDL cholesterol 112 mg/dL no refere nce range A reaso nable goal for non-H DL bella stero l is one that is 30 mg/dL highe r than the LDL bella stero l goal. Not Available [facility] (Lab) [address] [facility], [place], [address], 08/26/2025 15:47:12 08/21/2008/21/2025 LIPID PANEL ,AMA (LDL- CALC) chol/HDL ratio 2.7 . 0.0-5. 0 On January 27, 2023, [facility] labor atori judson pruitt ed the equat ion for calcu latin g estim ated low-d ensit y lipop rotei n-cho leste rol (LDL- C) from the Fried shawn equat ion to the Brandie barlow/Epi shaver equat ion. This new equat ion is only valid for lipid panel s with trigl yceri jan < 400 mg/dL . Franciei judson wasserman ed that this new equat ion will impro ve the accur acy of LDL-C , espec ially in scena rust when LDL-C barb ntrat ions are relat ively low (< 100 mg/dL ), trigl yceri jan are eleva jacinto, or patie nt is non-f astin g. Refer ences : - Mario Nair, Ta Tuttle , Mohkatelyn lawton, [place], Suoth cosby, [facility] , and Nitesh Shipman . 2013. Comp ariso n of a Novel Metho d vs the Fried shawn Equat ion for Estim ating Low-D ensit y Lipop rotei n Bella stero l Level s from the Stand elo Lipid Profdanyell roy. DAVION: The Journ al of the Ameri can Medic al Assoc iatio n 310 (19): 2060- . - Freya caraballo V, Alicia J, Selene caraballo A, Samreen M, Tiffany heck R, Sherwin caraballo E, Uche martínez RS, Umberto SR, Brandie barlow SS. Fast ing Versu s Nonfa sting and Low-D ensit y Lipop rotei n Bella stero l Accur acy. Circu latio n. 2017Oct 06;137 (1):1 0-19. Not Available [facility] (Lab) [address] [facility], [place], [address], 08/26/2025 15:47:12 08/21/20 25 08/21/2025 TSH, REFLE X FREE T4 TSH 1.41 uIU/m L 0.30-[address] [facility] (Lab) [address] [facility], [place], [address], 08/26/2025 15:47:13 08/21/20 25 08/21/2025 T4 FREE T4, free 0.96 NG/dL 0.54-1 .24 This assay is susce ptibl e to inter feren ce from high level s of bioti n which may false ly eleva te resul ts. Pleas e corre late with clini jenifer findi ngs. Not Available [facility] (Lab) [address] [facility], [place], [address], 08/26/2025 15:47:13 08/21/20 25 08/21/2025 VITAM IN D, 25-OH (TOTA L D2/D3 ) vitamin D, 25-hydroxy, total 28.4 NG/mL 30.0-1 00.0 low Sugge stive of Defic iency : <20 ng/mL Sugge stive of Insuf ficie ncy: 20-29 ng/mL Sugge stive of Suffi cienc y: 30-10 0 ng/mL Sugge stive of Toxic ity: >150 ng/mL Not Available [facility] (Lab) [address] [place], [address], 08/26/2025 15:47:13 08/21/20 25 08/21/2025 PROGE STERO NE progesterone 8.94 NG/mL The test metho d is elect greg milum inesc ence immun oassa y perfo rmed on the Greg Bossman e801. Value s obtai qiana with diffe rent assay metho ds by other labor atori es canno t be used inter pruitt eably . Femal e Proge stero ne Range s: Folli cular phase 0.06- 0.89 ng/mL Ovula tion phase 0.12- 12.00 ng/mL Lutea l phase 1.83- 23.90 ng/mL Postm enopa usal <0.05 -0.13 ng/mL Healt hy Pregn ant Women 1st Trime ster 11.0- 44.30 2nd Trime ster 25.40 -83.3 0 3rd Trime ster 58.70 -214. [address] [facility] (Lab) [address] [facility], [place], [address], 08/26/2025 15:47:14 08/21/20 25 08/21/2025 FSH, LH, ESTRA DIOL estradiol 95.2 pg/mL The test metho d is elect greg milum inesc ence immun oassa y perfo rmed on the Greg Bossman e801. Value s obtai qiana with diffe rent assay metho ds by other labor atori es canno t be used inter pruitt eably . Femal e Estra diol Range s: Folli cular phase 12.4- 233 pg/mL Ovula tion phase 41.0- 398 pg/mL Lutea l phase 22.3- 341 pg/mL Postm enopa usal <5-13 8 pg/mL Healt hy Pregn ant Women 1st Trime ster 154-3 243 pg/mL 2nd Trime ster 1561- 92401 pg/mL 3rd Trime ster 8525- >3000 0 pg/mL Not Available [facility] (Lab) [address] [facility], [place], [address], 08/26/2025 15:47:14 08/21/20 25 08/21/2025 FSH, LH, ESTRA DIOL FSH 6.4 mIU/m L The test metho d is elect greg milum inesc ence immun oassa y perfo rmed on the Greg Bossman e801. Value s obtai qiana with diffe rent assay metho ds by other labor atori es canno t be used [facility] . Femal es Folli cular : 3.5-1 2.5 mIU/m L Ovula tion: 4.7-2 1.5 mIU/m L Lutea l: 1.7-7 .7 mIU/m L Postm enopa use: 25.8- 134.8 mIU/m L Not Available [facility] (Lab) [address] [facility], [place], [address], 08/26/2025 15:47:14 08/21/20 25 08/21/2025 FSH, LH, ESTRA DIOL LH 7.5 mIU/m L The test metho d is elect greg milum inesc ence immun oassa y perfo rmed on the Greg Bossman e801. Value s obtai qiana with diffe rent assay metho ds by other labor atori es canno t be used inter [facility] . Femal es Mid-F ollic ular: 2.4-1 2.6 mIU/m L Mid-C ycle: 14.0- 95.6 mIU/m L Mid-L uteal : 1.0-1 1.4 mIU/m L Postm enopa use: 7.7-5 8.5 mIU/m L Not Available [facility] (Lab) [address] [place], [address], 08/26/2025 15:47:14 08/21/20 25 08/21/2025 PROLA CTIN prolactin, total 14.30 NG/mL 4.79-2 3.30 The test metho d is elect greg milum inesc ence immun oassa y perfo rmed on the Greg Bossman e801. Value s obtai qiana with diffe rent assay metho ds by other labor atori es canno t be used inter pruitt eably . Not Available [facility] (Lab) [address] [facility], [place], [address], 08/26/2025 15:47:15 08/21/20 25 08/21/2025 FREE T3 T3, free 2.30 pg/mL 2.00-4 .40 This assay is susce ptibl e to inter feren ce from high level s of bioti n which may false ly eleva te resul ts. Pleas e corre late with clini jenifer findi ngs inclu ding TSH and FT4 resul ts. If clini tomi indic ated, Free T3 by Equil debbie hugo Dialy sis LC/MS may be perfo rmed. Not Available [facility] (Lab) [address] [facility], [place], [address], 08/26/2025 15:47:15 08/21/20 25 08/21/2025 TESTO STERO NE, FREE( DIALY SIS) AND TOTAL (LC/M S/MS) testosterone , total 34 NG/dL 2-45 For addit ional infor anai chandler e refer to http: //[facility] liana barlow.que stdia gnost ics.c om/fa q/ Total Testo stero neLCM SMSFA Q165 (This link is being provi ded for infor margo nal/ educa anita l purpo ses only. ) This test was devel oped and its mike tical perfo rmanc e maikol cteri stics have been deter mined by [facility] MAIRA Jordan. It has not been clear ed or appro eduardo by the U.S. Food and Drug Admin istra tion. This assay has been valid ated pursu ant to the CLIA regul ation s and is used for clini jenifer purpo ses. Not Available [facility] (Lab) [address] [facility], [place], [address], 08/26/2025 15:47:15 08/21/2008/21/2025 TESTO STERO NE, FREE( DIALY SIS) AND TOTAL (LC/M S/MS) testosterone , free 2.8 pg/mL 0.1-6. 4 This test was devel oped and its mike tical perfo rmanc e maikol cteri stics have been deter mined by [facility] [place] [place]. It has not been clear ed or appro eduardo by the U.S. Food and Drug Admin istra tion. This assay has been valid ated pursu ant to the CLIA regul ation s and is used for clini jenifer purpo ses. Perfo rming Organ izati on Infor matio n: Site ID: AMD Name: [facility] Brody ls Insti tute Addre ss: [id number] [place], [place] Direc tor: Charly Brar MD PhD Not Available [facility] (Lab) [address] [facility], [place], [address], 08/26/2025 15:47:15 Result Notes None recorded. Problems Name Problem SNOMED Code Status Onset Date Resolution Date Notes Provider Name and Address Organization Details Recorded Time Ill-defi qiana intestin al infectio n Completed 201006/19/2021 No Show Fee;Prac ariel ID: 0001 Nargis Ayon [facility] 17:48:41 Speciali zed medical examinat ion Completed 201006/19/2021 Gynecolo gical Examinat ion;Johnie rded Elsewher e: No Locat ion: Jamil heck [facility] S ource: EHR Aircraft [employer]er thierno: N Practi ce ID: 0001 Riley lable Time: 04:30:00 PM [facility] 17:49:31 Malaise and fatigue [id number] Completed 201006/19/2021 Fatigue And Malaise; Practice ID: 0001 Nargis hutchison [facility] 17:49:33 Threaten ed miscarri age [id number] Completed 201206/19/2021 Threaten ed , antepart um;Pract ice ID: 0001 Nargis hutchison [facility] 17:49:27 Primigra marcel [id number] Completed 201306/19/2021 Supervis ion of normal first pregnanc y;Practi ce ID: 0001 Nargis hutchison [facility] 17:49:03 Delivery normal [id number] Completed 201306/19/2021 Normal delivery ;Practic e ID: 0001 Nargis hutchison [facility] 17:44:42 Single live from singleto n pregnanc y [id number] Completed 201306/19/2021 Mother with single liveborn ;Practic e ID: 0001 Nargis hutchison [facility] 17:49:13 Depressi ve disorder [id number] Active 2013 Depressi ve disorder , not elsewher e classifi ed;Pract ice ID: 0001 Not Available [facility] 0 17:09:21 Vaginiti s and vulvovag initis Completed 201306/19/2021 Vaginiti s and vulvovag initis, unspecif ied;Prac ariel ID: 0001 Nargis hutchison [facility] 17:49:20 Postpart um care Completed 201306/19/2021 Post Followup ;Recorde d Elsewher e: No Locat ion: Jamil heck [facility] S ource: EHR Aircraft [employer]er thierno: N Practi ce ID: 0001 Riley lable Time: 01:00:00 PM Nargis hutchison [facility] 17:46:41 Breast lump [id number] Completed 201406/19/2021 Lump or mass in breast;P ractice ID: 0001 Nargis hutchison [facility] 17:44:28 Venereal disease screenin g Completed 201406/19/2021 Screenin g examinat ion for venereal disease; Recorded Elsewher e: No [facility] Aircraft Cleaner thierno: N Practi ce ID: 0001 Riley lable Time: 03:30:00 PM Nargis hutchison [facility] 17:49:17 Amenorrh ea [id number] Completed 201406/19/2021 AMENORRH EA;Pract ice ID: 0001 Nargis hutchison [facility] 17:44:14 Overweig ht [id number] Completed 201406/19/2021 Overweig ht;Pract ice ID: 0001 [facility]:46:38 Pregnanc y test positive [id number] Completed 201406/19/2021 Positive Pregnanc y Test;Pra ctice ID: 0001 Nargis hutchison [facility] 17:49:00 Speciali zed medical examinat ion Completed 201406/19/2021 Other specifie d chlamydi al diseases ;Practic e ID: 0001 Nargis hutchison [facility] 17:49:29 Screenin g for malignan t neoplasm of cervix Completed 201406/19/2021 Pap Smear;Pr actice ID: 0001 Nargis hutchison [facility] 17:49:08 Antenata l screenin g Completed 201406/19/2021 ANTENATA L SCREENIN G NEC;Prac ariel ID: 0001 Nargis hutchison, [facility] 17:44:23 anatomy study Completed 201406/19/2021 [facility] ANATMC SURVEY;P ractice ID: 0001 Nargis hutchison, [facility] 17:45:06 Ultrason ography Completed 201406/19/2021 Antenata l screenin g for malforma tion using ultrason ics;Prac ariel ID: 0001 Nargis hutchison, [facility] 17:49:23 Congenit al malforma tion [id number] Completed 201406/19/2021 Antenata l screenin g for malforma tion using ultrason ics;Prac ariel ID: 0001 Nargis hutchison, [facility] 17:44:31 Known OR suspecte d abnormal ity affectin g manageme nt of mother Completed 201406/19/2021 Other known or suspecte d abnormal ity, not elsewher e classifi ed, affectin g manageme nt of mother, antepart um conditio n or complica tion;Pra ctice ID: 0001 Nargis hutchison, [facility] 17:49:36 Routine antenata l care Completed 201406/19/2021 Supervis ion of other normal pregnanc y;Tahira ce ID: 0001 Nargis hutchison, [facility] 17:49:06 Normal pregnanc y in multigra marcel [id number] Completed 201406/19/2021 Encounte r for supervis ion of other normal pregnanc y, third trimeste r;Record ed Elsewher e: No Locat ion: [facility] S ource: EHR Aircraft [employer] thierno: N Tahira ce ID: 0001 Riley lable Time: 03:30:00 PM Nargis hutchison [facility] 17:46:35 Gestatio n period, 35 weeks [id number] Completed 201406/19/2021 35 weeks gestatio n of pregnanc y;Record ed Elsewher e: No Locat ion: [facility]: E[facility] Aircraft Clean[employer] thierno: N Carrollti ce ID: 0001 Riley lable Time: 05:30:00 PM Nargis hutchison [facility] 17:45:11 Gestatio n period, 36 weeks [id number] Completed 201406/19/2021 36 weeks gestatio n of pregnanc y;Record ed Elsewher e: No Locat ion: [facility] S ource: EHR [employer] thierno: N Carrollti ce ID: 0001 Riley lable Time: 04:00:00 PM Nargis hutchison [facility] 17:45:32 Disorder of pregnanc y Completed 201406/19/2021 Polyhydr amnios, third trimeste r, not applicab le or unsp;Rec orded Elsewher e: No Locat ion: [facility] S ource: EHR [employer] thierno: N Practi ce ID: 0001 Riley lable Time: 05:00:00 PM Nargis hutchison [facility] 17:46:20 Gestatio n period, 37 weeks [id number] Completed 201406/19/2021 37 weeks gestatio n of pregnanc y;Record ed Elsewher e: No Locat ion: [facility] S ource: EHR [employer] thierno: N Practi ce ID: 0001 Riley lable Time: 04:45:00 PM Nargis hutchison [facility] 17:45:24 Gestatio n period, 34 weeks [id number] Completed 201406/19/2021 34 weeks gestatio n of pregnanc y;Record ed Elsewher e: No Locat ion: [facility] S ource: EHR Aircraft Cleaner thierno: N Practi ce ID: 0001 Riley lable Time: 03:00:00 PM Nargis hutchison [facility] 17:45:09 Gestatio n period, 38 weeks [id number] Completed 201406/19/2021 38 weeks gestatio n of pregnanc y;Practi ce ID: 0001 Nargis hutchison [facility] 17:45:26 Lochia finding Completed 201506/19/2021 Encounte r for routine postpart um follow-u p;Practi ce ID: 0001 Nargis [facility] 17:46:31 Acute vaginiti s [id number] Completed 201506/19/2021 Vaginiti s;Record ed Elsewher e: No Locat ion: [facility] S ource: EHR [employer] thierno: N Practi ce ID: 0001 Riley lable Time: 03:30:00 PM Nargis [facility] 17:44:[address] Concept Completed 201506/19/2021 Encntr for flexo operator exam (general ) (routine ) w/o abn findings ;Recorde d Elsewher e: No Locat ion: [facility]il [facility] S ource: EHR Aircraft Cleaner thierno: N Practi ce ID: 0001 Riley lable Time: 03:00:00 PM Nargis hutchison [facility] 17:49:11 Body mass index 25-29 - overweig ht [id number] Completed 201506/19/2021 Body mass index (BMI) 27.0-27. 9, adult;Re corded Elsewher e: No Locat ion: Jamil maria r [facility] S ource: EHR Aircraft Cleaner thierno: N Practi ce ID: 0001 Riley lable Time: 03:00:00 PM Nargis hutchison [facility] 1 17:44:26 Pregnanc y test negative [id number] Completed 201706/19/2021 Encounte r for pregnanc y test, result negative ;Recorde d Elsewher e: No Locat ion: [facility] S ource: EHR [employer] thierno: N Practi ce ID: 0001 Riley lable Time: 10:30:00 AM Nargis hutchison [facility] 1 17:46:45 Insertio n of intraute rine contrace ptive device Completed 201706/19/2021 Encounte r for insertio n of intraute rine contrace ptive device;R ecorded Elsewher e: No Locat ion: [facility] S ource: EHR Aircraft Clean[employer] thierno: N Practi ce ID: 0001 Riley lable Time: 10:30:00 AM Nargis hutchison [facility] 1 17:46:28 BRCA2 gene mutation detected [id number] Active 2020 Jose Patel MD [address], [place], [address], [facility] 1 18:08:26 Problem Notes None recorded. Procedures Surgical History Date Name Laterality Status Provider Name and Address Organization Details Recorded Time 5 Date of Last Mammogram completed [facility] 08/21/2025 10:08:45 4 Date of Last Pap Smear completed [facility] 08/21/2025 10:08:25 Imaging Results None recorded. Procedure Notes None recorded. Medical Equipment None Reported. Allergies No known drug allergies Medications Name Sig Start Date Stop Date Status Note LastModified by Organization Details LastModified Time cyclobenz aprine 10 mg tablet take 1 tablet by oral route 2 times every day as needed for back pain 10/17 completed Prescrib ed Elsewher e: No Locat ion: [facility] odify By: [email or web address] E ncounter DateTime : 08/15/20 15 04:04:12 PM Not Available Not Available Not [...] ed Elsewher e: Yes Loca tion: [facility] odify By: [email or web address] Encounte r DateTime : 02/15/20 19 09:15:00 AM Not [...] Prescrib ed Elsewher e: No Locat ion: [facility] odify By: [email or web address] phelps DateTime : 01/10/20 14 11:11:32 AM [...] Prescrib ed Elsewher e: No Locat ion: [facility] odify By: sandie Mccormack r DateTime : 10/17/19 16 11:15:00 AM Not Available Not Available Not Available Vitamin D2 1,250 mcg (50,000 unit) capsule take 1 capsule ([id number]) by oral route every week 06/29 completed Prescrib ed Elsewher e: No Locat ion: [facility] odify By: [email or web address] Encount er DateTime : [...] ed Elsewher e: Yes Loca tion: [facility] odify By: corina Mccormack r DateTime : 09/17/20 11 04:30:00 PM [...] ed Elsewher e: Yes Loca tion: [facility] odify By: corina Mccormack r DateTime : 09/17/20 11 04:30:00 PM Not Available Not Available Not Available Chuckie fajardoo DHA 29 mg-1 mg-400 mg oral pack take 2 by Oral route every day for 30 days 02/06 completed Prescrib ed Elsewher e: No Locat ion: [facility] odify By: julia lim DateTime : 06/30/20 14 09:57:31 AM Not [...] ed Elsewher e: No Locat ion: [facility] odify By: [email or web address] Markt er DateTime : 03/13/20 14 01:00:00 PM Not Available Not Available Not Available Vitals Date Recorded Body height Body mass index (BMI) Body weight Systolic And Diastolic Provider Name and Address Organization Details Last Updated DateTime 08/21/2025 170.18 cm 23.8 kg/m2 74020.04 g 107/71 mm[Hg] Iveth Jeffery [place] - [facility] 08/21/2025 10:06:39 Social History Question Answer Notes LastModified by Organizat ion Details LastModified Time Tobacco Smoking Status Never Smoker Not Available [employer] 08/07/2020 03:28:11 Do You Have An Advance [...] Or The Highest Degree You Have Received? [id number] Information not available 08/21/2025 Are There Any [...] anxious, or unable to sleep at night)? [id number] Information not available 08/21/2025 Family History Relationship [...] ICD10 Code Diagnosis IMO Codes Diagnosis Note [id number] Jose Patel MD [place] [address] [address] 08/21/2025 09:50:24 08/21/2025 10:41:41 Loss of hair 502353821 L65.9 21127 Gynecologi c examination 67442543 Z01.419 [id number] This patient is here for her annual [...] by Organization Details LastModified Time None Recorded Payers Encounter Date Sequence Insurance Name Policy Number Policy Orozco Covered Member ID Orozco Member ID Guarantor Name 08/21/2025 1 [employer] [place] [id number] Sapna Fuentes [id number] GOSIA Fuentes Notes Date Note Type Note Provider Name and Address Organization Details Recorded Time 08/21/20 25 text/htm l Annual GYNReported by PatientHistoryFor history, patient reportsno gynecologic complaints.Genitourinary symptomsFor menstrual cycle, patient reportsnormal menses. For urinary symptoms, patient reportsno hematuria. For vulva, patient reportsno genital lesion. For vagina, patient reportsnormal vaginal discharge.Breast symptomsFor breast, patient reportsno breast painandno breast lump.ContraceptionFor current contraception, patient reportssatisfied with current contraceptionandintrauterin e device (iud).Endocrine symptomsFor sexual complaints, patient reportsdecreased libidobut reportsno sexual complaintsandno pain during intercourse. For menopausal symptoms, patient reportsno menopausal symptomsandnormal vaginal lubrication.Psychological symptomsFor psychological symptoms, patient reportsno depressionandno anxiety.Preventative measuresFor preventive measures, patient reportsencourage self breast examinationandencourage regular exercise. Jose Patel MD [address], [place], [address], [place] - [facility] 08/21/2025 10:40:19 OBGyn Episode No OBEpisode recorded.
== END 2025-09-25 08:59 | disposition home or self-care (01) ==
PROVIDERS: Emergency Provider Nurse Practitioner Family
DX: B34.9 Viral infection, unspecified (principal); J06.9 Acute upper respiratory infection, unspecified; F17.200 Nicotine dependence, unspecified, uncomplicated
CPT/HCPCS: 99211; G0463